=== PATIENT | female | born 1990 | race Caucasian/White ===

== ENCOUNTER 2017-09-25 17:32 | Emergency (ER) | payer OTHER ==
[2017-09-25 17:53] VITALS: BP 102/54
[2017-09-25] MEDS ORDERED: Ondansetron ODT TAB* 4 MG PO ONE (18:51)
--- NOTE | 2017-09-25 19:01 | UC ---
Abdominal Pain Female HPI - HPI Summary HPI Summary: c/o nausea and vomiting since this am, tolerating water but not any food. Denies fever, abdominal pain, diarrhea or constipation. States BM are as usual. Two days ago she finished doxicycline and cephalexin for cellulitis of leg and she has been nauseous during her entire treatment but today it is the first time that she vomits. Denies any changes in medications, denies taking any other OCD, recreational drug. LMD was 2 weeks ago, uses implanon. - History of Current Complaint Stated Complaint: VOMITING Time Seen by Provider: 09/25/17 18:27 Hx Obtained From: Patient Hx Last Menstrual Period: 09/11/17 ?: No Onset/Duration: Sudden Onset Severity Initially: Mild Severity Currently: Mild Character: Not Applicable Aggravating Factor(s): Food Associated Signs and Symptoms: Positive: Negative Allergies/Adverse Reactions: Allergies Allergy/AdvReac Type Severity Reaction Status Date / Time No Known Allergies Allergy Verified 02/01/14 18:59 Home Medications: Home Medications Buprenorphine/Naloxone SL TAB* [Suboxone 8-2 mg SL TAB*] 1 tab SL 09/25/17 [ History] PMH/Surg Hx/FS Hx/Imm Hx - Additional Past Medical History Additional PMH: s/p gastric bypass surgery, history of IVDA on Suboxone, GERD, depression Previously Healthy: Yes Psychological History: Depression - Surgical History Surgical History: Yes Surgery Procedure, Year, and Place: gastric bypass 2008 on [place] - Social History Alcohol Use: None Substance Use Type: None Substance Use Comment - Amount & Last Used: stopped herion and is now using suboxone Smoking Status (MU): Light Every Day Tobacco Smoker Type: Cigarettes Have You Smoked in the Last Year: Yes Household Exposure Type: Cigarettes - Immunization History Most Recent Influenza Vaccination: n/a Most Recent Tetanus Shot: n/a Most Recent Pneumonia Vaccination: n/a Review of Systems Constitutional: Negative Gastrointestinal: Vomiting All Other Systems Reviewed And Are Negative: Yes Physical Exam Triage Information Reviewed: Yes Appearance: Well-Appearing Vital Signs: Initial Vital Signs Temp 98.2 F 09/25/17 17:48 Pulse 71 09/25/17 17:48 Resp 18 09/25/17 17:48 BP 102/54 09/25/17 17:48 Pulse Ox 99 09/25/17 17:48 Vital Signs Reviewed: Yes Eyes: Positive: Conjunctiva Clear Neck exam: Normal Respiratory Exam: Normal Cardiovascular Exam: Normal Abdominal Exam: Normal Abd Pain Female Course/Dx - Course Course Of Treatment: take zofran as needed, probiotics, small volumes of liquids and semisolids, avoid caffeine and dairy unless it is yogurt - Differential Dx/Diagnosis Provider Diagnoses: Gastritis secondary to antibiotic treatment Discharge - Discharge Plan Condition: Stable Disposition: HOME Patient Education Materials: Gastritis (ED) Referrals: Wisam Patterson MD [Primary Care Provider] -
== END 2017-09-25 19:09 | disposition home or self-care (01) ==
LOC: UCEAST 17:32
DX: K29.70 Gastritis, unspecified, without bleeding (principal); T36.4X5A Adverse effect of tetracyclines, initial encounter; T36.1X5A Adverse effect of cephalosporins and other beta-lactam antibiotics, initial encounter; F17.210 Nicotine dependence, cigarettes, uncomplicated; Y92.9 Unspecified place or not applicable
CPT/HCPCS: 99212; A9270-GY; G0463

== ENCOUNTER 2018-02-09 23:12 | Inpatient (IN) | payer MEDICAID, OTHER ==
[2018-02-10 00:22] LABS: ABS Basophils 0 10^3/ul (0-0.2); ABS Eosinophils 0.2 10^3/ul (0-0.6); ABS Monocytes 0.6 10^3/ul (0-0.8); ABS Neutrophils 3.9 10^3/ul (1.5-7.7); ABS Nucleated RBC 0 10^3/ul; Eosinophil % 2.8 % (0-6); Hematocrit 32 % (35-47); Hemoglobin 10.2 g/dl (12.0-16.0); Lymphocyte % 29.8 % (25-47); Mean Corpuscular HGB Conc 32 g/dl (31-36); Mean Corpuscular Hemoglobin 24 pg (27-31); Mean Corpuscular Volume 73 fL (80-97); Mean Platelet Volume 7.8 um3 (7.4-10.4); Nucleated Red Blood Cells % 0; Platelet Count 329 10^3/ul (150-450); Red Blood Count 4.35 10^6/ul (4.0-5.4); Red Cell Distribution Width 19 % (10.5-15); White Blood Count 6.8 10^3/ul (3.5-10.8)
[2018-02-10 00:29] LABS: EGFR Non-African American 98.7 (>60)
[2018-02-10 00:32] LABS: Urine Appearance Cloudy; Urine Blood Negative (Negative); Urine Color Yellow; Urine Ketones Trace (Negative); Urine Protein 2+(100 mg/dL) (Negative); Urine Specific Gravity 1.033 (1.010-1.030); Urine Urobilinogen Negative (Negative)
[2018-02-10] MEDS ORDERED: Mouth Piece, Nicotine* 1 EACH CARTRIDGE INH PRN (01:13)
[2018-02-10] MEDS ORDERED: Nicotine Inhaler* 10 MG AMP INH ONE (01:13)
[2018-02-10] MEDS ORDERED: Mouth Piece, Nicotine* 1 EACH CARTRIDGE ONE (01:20)
--- NOTE | 2018-02-10 01:28 | ED ---
Esa Jeronimo Rebecca, scribed for Nash Davies MD on 02/09/18 at 2355 . Psychiatric Complaint - HPI Summary HPI Summary: Pt is a 27 y/o F who presents to ED c/o depression with SIs. Sx have been present for about a month, gradually worsening. Sx aggravated and alleviated by nothing. PMHx depression - is on Zoloft 200 which was increased from 150 1 week ago. - History Of Current Complaint Chief Complaint: EDMentalHealth Time Seen by Provider: 02/09/18 23:34 Hx Obtained From: Patient Hx Last Menstrual Period: 09/11/17 Onset/Duration: Lasting Weeks - 1 month, Still Present Character: Depressed Aggravating Factor(s): Nothing Alleviating Factor(s): Nothing Associated Signs And Symptoms: Positive: Negative Related History: Positive For: Prior Psychiatric Issues - Depression Has Suicidal: Reports: Thoughts - Allergies/Home Medications Allergies/Adverse Reactions: Allergies Allergy/AdvReac Type Severity Reaction Status Date / Time No Known Allergies Allergy Verified 02/09/18 23:17 PMH/Surg Hx/FS Hx/Imm Hx Endocrine/Hematology History: Denies: Hx Diabetes Cardiovascular History: Denies: Hx Hypertension, Hx Pacemaker/ICD Respiratory History: Denies: Hx Asthma GI History: Reports: Hx Gastroesophageal Reflux Disease History: Denies: Hx Dialysis, Hx Renal Disease Sensory History: Reports: Hx Contacts or Glasses Denies: Hx Hearing Aid Opthamlomology History: Reports: Hx Contacts or Glasses Neurological History: Reports: Other Neuro Impairments/Disorders - l sided neuopathy Psychiatric History: Reports: Hx Anxiety, Hx Eating Disorder, Hx Depression, Hx Inpatient Treatment, Hx Community Mental Health Tx Denies: Hx Panic Disorder, Hx of Violent Episodes Against Others - Surgical History Surgery Procedure, Year, and Place: gastric bypass 2008 on [place] - Immunization History Date of Tetanus Vaccine: Unk Date of Influenza Vaccine: None Infectious Disease History: No Infectious Disease History: Denies: Traveled Outside the [place] in Last 30 Days - Family History Known Family History: Positive: Other - Bipolar, depression - Social History Alcohol Use: None Substance Use Type: Reports: None Substance Use Comment - Amount & Last Used: stopped herion and is now using suboxone Smoking Status (MU): Light Every Day Tobacco Smoker Type: Cigarettes Have You Smoked in the Last Year: Yes Review of Systems Negative: Fever Positive: Depressed, Other - SIs All Other Systems Reviewed And Are Negative: Yes Physical Exam - Summary Physical Exam Summary: VITAL SIGNS: Reviewed. GENERAL: ~Patient is a well-developed and nourished female who is lying comfortable in the stretcher. Patient is not in any acute respiratory distress. HEAD AND FACE: No signs of trauma. No ecchymosis, hematomas or skull depressions. No sinus tenderness. EYES: PERRLA, EOMI x 2, No injected conjunctiva, no nystagmus. EARS: Hearing grossly intact. Ear canals and tympanic membranes are within normal limits. MOUTH: Oropharynx within normal limits. NECK: Supple, trachea is midline, no adenopathy, no JVD, no carotid bruit, no c- spine tenderness, neck with full ROM. CHEST: Symmetric, no tenderness at palpation LUNGS: Clear to auscultation bilaterally. No wheezing or crackles. CVS: Regular rate and rhythm, S1 and S2 present, no murmurs or gallops appreciated. ABDOMEN: Soft, non-tender. No signs of distention. No rebound no guarding, and no masses palpated. Bowel sounds are normal. EXTREMITIES: FROM in all major joints, no edema, no cyanosis or clubbing. NEURO: Alert and oriented x 3. No acute neurological deficits. Speech is normal and follows commands. SKIN: Dry and warm Triage Information Reviewed: Yes Vital Signs On Initial Exam: Initial Vitals Temp Pulse Resp BP Pulse Ox 97.7 F 75 18 107/63 98 02/09/18 23:14 02/09/18 23:14 02/09/18 23:14 02/09/18 23:14 02/09/18 23:14 Vital Signs Reviewed: Yes Diagnostics - Vital Signs Vital Signs Temp Pulse Resp BP Pulse Ox 02/09/18 23:14 97.7 F 75 18 107/63 98 - Laboratory Result Diagrams: 02/10/18 00:01 02/10/18 00:01 Lab Statement: Any lab studies that have been ordered have been reviewed, and results considered in the medical decision making process. Course/Dx - Course Assessment/Plan: Pt is a 27 y/o F who presents to ED c/o depression with SIs for about a month, gradually worsening. PMHx depression - is on Zoloft 200 which was increased from 150 1 week ago. Upon completion of MHE and consultation of [facility] it has been determined that the pt will be admitted as a voluntary admission. Pt will be admitted with Dx of depression. - Differential Dx/Clinical Impression Provider Diagnosis: Depression Discharge - Sign-Out/Discharge Documenting (check all that apply): Discharge/Admit/Transfer - Admit - Discharge Plan Condition: Stable [place] [place]errals: Wisam Patterson MD [Primary Care Provider] - The documentation as recorded by the Esa valenzuela Rebecca accurately reflects the service I personally performed and the decisions made by Keke alan Abdul, MD.
[2018-02-10] MEDS ORDERED: Mouth Piece, Nicotine* 1 EACH CARTRIDGE INH ONE ×2 (02:00→05:00)
[2018-02-10] MEDS ORDERED: Acetaminophen TAB* 325 MG PO PRN (04:30)
[2018-02-10] MEDS ORDERED: Al Hydrox/Mg Hydrox/Simet LIQ* 30 ML UDC PO PRN (04:30)
[2018-02-10] MEDS: Vitamin THERAPEUTIC TAB PO SCH (09:49)
[2018-02-10] MEDS: Sertraline* 50 MG TAB PO SCH (09:49)
[2018-02-10] MEDS: Nicotine GUM* 2 MG PO PRN (09:49)
[2018-02-10] MEDS: ARIPiprazole TAB* 5 MG PO SCH (11:58)
[2018-02-10] MEDS: Nicotine Inhaler* 10 MG AMP INH PRN ×2 (11:58→18:30)
[2018-02-10] MEDS: Buprenorphine/Naloxone 8-2 MG SL TAB* 1 TAB PO SCH ×2 (16:26→20:57)
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
[2018-02-11 06:56] LABS: ABS Basophils 0 10^3/ul (0-0.2); ABS Eosinophils 0.2 10^3/ul (0-0.6); ABS Lymphocytes 2.3 10^3/ul (1.0-4.8); ABS Monocytes 0.5 10^3/ul (0-0.8); ABS Neutrophils 1.9 10^3/ul (1.5-7.7); ABS Nucleated RBC 0 10^3/ul; Eosinophil % 3.3 % (0-6); Hematocrit 29 % (35-47); Hemoglobin 9.3 g/dl (12.0-16.0); Lymphocyte % 47.1 % (25-47); Mean Corpuscular HGB Conc 33 g/dl (31-36); Mean Corpuscular Hemoglobin 24 pg (27-31); Mean Corpuscular Volume 72 fL (80-97); Mean Platelet Volume 7.5 um3 (7.4-10.4); Nucleated Red Blood Cells % 0.1; Platelet Count 249 10^3/ul (150-450); Red Blood Count 3.96 10^6/ul (4.0-5.4); Red Cell Distribution Width 18 % (10.5-15); White Blood Count 4.8 10^3/ul (3.5-10.8)
[2018-02-11 07:07] LABS: EGFR Non-African American 102.1 (>60)
[2018-02-11] MEDS: Nicotine GUM* 2 MG PO PRN ×3 (08:13→20:45)
[2018-02-11] MEDS: ARIPiprazole TAB* 5 MG PO SCH (08:14)
[2018-02-11] MEDS: Nicotine Inhaler* 10 MG AMP INH PRN ×3 (08:14→20:45)
[2018-02-11] MEDS: Buprenorphine/Naloxone 8-2 MG SL TAB* 1 TAB PO SCH ×2 (08:15→20:46)
[2018-02-11] MEDS: Sertraline* 50 MG TAB PO SCH (08:17)
[2018-02-11] MEDS: Vitamin THERAPEUTIC TAB PO SCH (08:17)
--- NOTE | 2018-02-11 13:36 | PN ---
Subjective - Subjective Date of Service: 02/11/18 Service Type: 72216 Hosp care 25 min moderate complexity Subjective: Omar feels "listless" today. She states she feels like her head is stuffy and "floating up in the air" due to the side effects of Abilify, perhaps. She is grateful to be in the hospital because she is willing to stay on the medication despite the side effects while in the outpatient world, she might not have been eager to do so. The positive drug screen for opiates has been sent out for confirmation. I spoke briefly with Dr. Ignacio Arias about Omar. He indicated that she has signed consents for [facility] to communicate with long-term rehabs if she continues to "slip up," in her words. Her lab values are a bit skewed and this is likely due in part to her s/p bariatric surgery 10 years ago. We will initiate iron sulfate therapy once daily and add colace, as well, to try to avoid the constipation usually associated with iron therapy. Objective - Appearance Appearance: Healthy Appearing Dysmorphic Features: No Hygiene: Normal Grooming: Fairly Well Kept - Behavior Psychomotor Activities: Normal Exhibits Abnormal Movement: No - Attitude and Relatedness Attitude and Relatedness: Well Related Eye Contact: Good - Speech Quality: Unpressured Latencies: Short Quantity: Appropriate - Mood Patient's Decription of Mood: "Weird and floaty" - Affect Observed Affect: Depressed Affect Consistent with: Dysphoria - Thought Process Patient's Thought Process: Coherent Thought Content: No Passive Wish, No Suicidal Planning, No Homicidal Ideation, No Paranoid Ideation - Sensorium Experiencing Hallucinations: No, Sensorium is Clear Type of Hallucinations: Visual: No, Auditory: No, Command: No - Level of Consciousness Level of Consciousness: Lethargic Orientation: Yes Intact, Yes Orientated to Time, Yes Orientated to Place, Yes Orientated to Person - Impulse Control Impulse Control: Impaired - Insight and Judgement Insight and Judgement: Impaired - Group Participation Particating in Group Activities: Yes - Medication Management Medication Management Adherence: Yes - Additional Observations Comments: While Omar is doing well on the unit, she does have a tendency to minimize her impulsivity. She is able to occupy her time, but also reports being bored and feeling "weird" and "listless". She is certain she would not be compliant with medications outside of the hospital and as she has not improved since admission, she would not benefit from discharge. Assessment - Assessment Merits Inpatient Hospitalization: For Immediate Safety Inpatient DSM-V Dx: F33.1 Clinical Impression: Omar is a 27-year-old white female who suffers with repeated episodes of depression that tend to remit after months' duration. At this point, she has been depressed for 1.5 months and does not see an end to her difficulties. In that setting, she has suicidal ideation. She is also a rehabilitated heroin addict who "slips up" now and then. She is proud of her progress, nevertheless, although her youth liaison officer and [facility] staff apparently disagree. Plan - Plan Treatment Plan: Name: OMAR BIRD Birthdate: 1990 [id number] Continued Medication Management: Different Medication Medications: Current Medications Acetaminophen (Tylenol Tab*) 650 mg PO Q4H PRN PRN Reason: PAIN or TEMP > 101 F Al Hydrox/Mg Hydrox/Simethicone (Maalox Plus*) 30 ml PO Q4H PRN PRN Reason: INDIGESTION Aripiprazole (Abilify Tab*) 5 mg PO DAILY [facility] Last Admin: 02/11/18 08:14 Dose: 5 mg Buprenorphine/Naloxone (Suboxone 8-2 Mg Sl Tab*) 0.5 tab.sl PO BID [facility] Last Admin: 02/11/18 08:15 Dose: 0.5 tab.sl Ferrous Sulfate (Ferrous Sulfate Tab*) 325 mg PO DAILY [facility] Multivitamins (Theragran Tab*) 1 tab PO DAILY [facility] Last Admin: 02/11/18 08:17 Dose: 1 tab Nicotine (Nicotine Inhaler*) 10 mg INH Q2H PRN PRN Reason: CRAVING Last Admin: 02/11/18 08:14 Dose: 10 mg Nicotine Polacrilex (Nicotine Gum*) 2 mg PO Q2H PRN PRN Reason: CRAVING Last Admin: 02/11/18 08:13 Dose: 2 mg Sertraline HCl (Zoloft*) 150 mg PO DAILY [facility] Last Admin: 02/11/18 08:17 Dose: 150 mg - Discharge Plan Discharge Plan: Outpatient Follow Up Additional Comments: Omar will start Abilify 5 mg and continue Zoloft 200 mg. Her hct and hgb were low. She states she is chronically anemic following bariatric surgery and that her doctors recommended iron fumarate. As the hospital does not carry that formulation of iron and she can't afford it outpatient, we will use iron sulfate Qday. This may target the listlessness she states she has.
[2018-02-11] MEDS: Ferrous Sulfate TAB* 325 MG PO SCH (13:57)
[2018-02-11] MEDS: Docusate CAP* 100 MG PO SCH (14:59)
--- NOTE | 2018-02-11 16:22 | PN ---
[facility]: Group Therapy Note - Service Type Service Type: [id number] Group Psychotherapy - Medication Education Group: Patient was attentive and participatory in group, and remained in good behavioral control. Patient expressed positive insights regarding relevant treatment interventions. Patient stated understanding of material discussed and had appropriate questions.
[2018-02-12] MEDS: Sertraline* 50 MG TAB PO SCH (08:48)
[2018-02-12] MEDS: Ferrous Sulfate TAB* 325 MG PO SCH (08:48)
[2018-02-12] MEDS: Docusate CAP* 100 MG PO SCH (08:49)
[2018-02-12] MEDS: Vitamin THERAPEUTIC TAB PO SCH (08:49)
[2018-02-12] MEDS: ARIPiprazole TAB* 5 MG PO SCH (08:49)
[2018-02-12] MEDS: Buprenorphine/Naloxone 8-2 MG SL TAB* 1 TAB PO SCH ×2 (08:50→20:48)
[2018-02-12] MEDS: Nicotine GUM* 2 MG PO PRN ×3 (08:51→20:50)
[2018-02-12] MEDS: Nicotine Inhaler* 10 MG AMP INH PRN ×4 (08:51→20:49)
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
[2018-02-13] MEDS: Sertraline* 50 MG TAB PO SCH (09:07)
[2018-02-13] MEDS: ARIPiprazole TAB* 5 MG PO SCH (09:07)
[2018-02-13] MEDS: Buprenorphine/Naloxone 8-2 MG SL TAB* 1 TAB PO SCH ×2 (09:08→21:47)
[2018-02-13] MEDS: Vitamin THERAPEUTIC TAB PO SCH (09:08)
[2018-02-13] MEDS: Docusate CAP* 100 MG PO SCH (09:08)
[2018-02-13] MEDS: Ferrous Sulfate TAB* 325 MG PO SCH (09:08)
[2018-02-13] MEDS: Nicotine Inhaler* 10 MG AMP INH PRN ×3 (09:09→19:07)
[2018-02-13] MEDS: Nicotine GUM* 2 MG PO PRN ×3 (09:09→19:07)
--- NOTE | 2018-02-13 16:14 | PN ---
Subjective - Subjective Date of Service: 02/13/18 Service Type: 11566 Hosp care 15 min low complexity Subjective: Omar reports that she is feeling better and at one point confessed that she used IV heroin prior to admission and was feeling guilty. Prior to that she was depressed and that is why she relapsed. Says she is considering inpatient rehab to learn better coping strategies to deal with cravings. No more suicidal. Objective - Appearance Appearance: Healthy Appearing Dysmorphic Features: No Hygiene: Normal - Behavior Psychomotor Activities: Normal Exhibits Abnormal Movement: No - Attitude and Relatedness Attitude and Relatedness: Appropriate Eye Contact: Good - Speech Quality: Unpressured Latencies: Normal Quantity: Appropriate - Mood Patient's Decription of Mood: "Sad" - Affect Observed Affect: Depressed Affect Consistent with: Dysphoria - Thought Process Patient's Thought Process: Coherent, Goal Directed Thought Content: No Passive Wish, No Suicidal Planning, No Homicidal Ideation, No Paranoid Ideation - Sensorium Experiencing Hallucinations: No, Sensorium is Clear Type of Hallucinations: Visual: No, Auditory: No, Command: No - Level of Consciousness Orientation: Yes Intact, Yes Orientated to Time, Yes Orientated to Place, Yes Orientated to Person - Impulse Control Impulse Control: Tenuous - Insight and Judgement Insight and Judgement: Poor - Group Participation Particating in Group Activities: Yes - Medication Management Medication Management Adherence: Yes Assessment - Assessment Merits Inpatient Hospitalization: For Immediate Safety, For Stabilization, Pending Safe DC Plan Inpatient DSM-V Dx: F33.1 Plan - Plan Treatment Plan: Name: OMAR BIRD Birthdate: 1990 [id number] Continued Medication Management: Continue Outpt Medication Medications: Current Medications Acetaminophen (Tylenol Tab*) 650 mg PO Q4H PRN PRN Reason: PAIN or TEMP > 101 F Al Hydrox/Mg Hydrox/Simethicone (Maalox Plus*) 30 ml PO Q4H PRN PRN Reason: INDIGESTION Aripiprazole (Abilify Tab*) 5 mg PO DAILY [facility] Last Admin: 02/13/18 09:07 Dose: 5 mg Buprenorphine/Naloxone (Suboxone 8-2 Mg Sl Tab*) 0.5 tab.sl PO BID [facility] Last Admin: 02/13/18 09:08 Dose: 0.5 tab.sl Docusate Sodium (Colace Cap*) 100 mg PO DAILY [facility] Last Admin: 02/13/18 09:08 Dose: 100 mg Ferrous Sulfate (Ferrous Sulfate Tab*) 325 mg PO DAILY [facility] Last Admin: 02/13/18 09:08 Dose: 325 mg Multivitamins (Theragran Tab*) 1 tab PO DAILY [facility] Last Admin: 02/13/18 09:08 Dose: 1 tab Nicotine (Nicotine Inhaler*) 10 mg INH Q2H PRN PRN Reason: CRAVING Last Admin: 02/13/18 14:32 Dose: 10 mg Nicotine Polacrilex (Nicotine Gum*) 2 mg PO Q2H PRN PRN Reason: CRAVING Last Admin: 02/13/18 14:32 Dose: 2 mg Sertraline HCl (Zoloft*) 150 mg PO DAILY [facility] Last Admin: 02/13/18 09:07 Dose: 150 mg - Discharge Plan Discharge Plan: Drug/Alcohol Rehab
[2018-02-14] MEDS: Docusate CAP* 100 MG PO SCH (08:44)
[2018-02-14] MEDS: ARIPiprazole TAB* 5 MG PO SCH (08:44)
[2018-02-14] MEDS: Vitamin THERAPEUTIC TAB PO SCH (08:44)
[2018-02-14] MEDS: Sertraline* 50 MG TAB PO SCH (08:45)
[2018-02-14] MEDS: Ferrous Sulfate TAB* 325 MG PO SCH (08:45)
[2018-02-14] MEDS: Buprenorphine/Naloxone 8-2 MG SL TAB* 1 TAB PO SCH ×2 (08:46→21:17)
[2018-02-14] MEDS: Nicotine GUM* 2 MG PO PRN ×2 (08:47→16:00)
[2018-02-14] MEDS: Nicotine Inhaler* 10 MG AMP INH PRN ×3 (08:47→21:18)
[2018-02-15 08:15] VITALS: BP 95/54
[2018-02-15] MEDS: Sertraline* 50 MG TAB PO SCH (08:44)
[2018-02-15] MEDS: Docusate CAP* 100 MG PO SCH (08:44)
[2018-02-15] MEDS: Vitamin THERAPEUTIC TAB PO SCH (08:45)
[2018-02-15] MEDS: Ferrous Sulfate TAB* 325 MG PO SCH (08:45)
[2018-02-15] MEDS: Nicotine GUM* 2 MG PO PRN (08:46)
[2018-02-15] MEDS: Nicotine Inhaler* 10 MG AMP INH PRN (08:46)
[2018-02-15] MEDS: ARIPiprazole TAB* 5 MG PO SCH (08:46)
[2018-02-15] MEDS: Buprenorphine/Naloxone 8-2 MG SL TAB* 1 TAB PO SCH (08:47)
--- NOTE | 2018-02-15 11:20 | PN ---
MHU: Group Therapy Note - Service Type Service Type: 82918 Group Psychotherapy - Cognitive Behavioral Group Therapy ( CBT):Patient was attentive and participatory in CBT programming this morning, and remained in good behavioral control. Patient expressed positive insights regarding relevant treatment interventions and goals.
--- NOTE | 2018-02-16 08:32 | DS ---
CC: Dr. Patterson * DISCHARGE SUMMARY: DATE OF ADMISSION: 02/10/18 DATE OF DISCHARGE: 02/15/18 PROVIDER: Christine Valdovinos NP, in Psychiatry. SUPERVISING PHYSICIAN: Dr. Tavon Cameron.* (DICTATED BY CHRISTINE VALDOVINOS NP ) DIAGNOSES: [place] I: Depressive disorder, not otherwise specified; opiate misuse and opiate abuse. CONDITION AT THE TIME OF DISCHARGE: Improved. Psychiatrically cleared, stable. Participated in group, social with peers. She has done well here psychiatrically and tolerated new meds well. She will attend [facility]. MENTAL STATUS EXAM: At the time of discharge, the patient is calm, cooperative , makes good eye contact. She is alert and oriented x3. Her grooming is very good. Her speech pace is normal. Thought processes are logical. She is not psychotic, not delusional. Denies AH, VH, SI, and HI. Insight is fair, her judgment is fair. Her impulse control is fair to good. Willing to follow up. She is urged to see her therapist and the [facility]. DISCHARGE INSTRUCTIONS TO THE PATIENT: A. Medications: 1. Aripiprazole 5 mg daily. 2. Suboxone 8-2 mg one-half tab b.i.d. 3. Colace 100 mg p.o. daily. 4. Ferrous sulfate 325 mg p.o. daily. 5. Nicotine gum 2 mg p.o. q.2 hours. 6. Zoloft 150 mg p.o. daily. B. Diet: Regular. C. Activities: As tolerated. Daria is a smoker. She has agreed to take nicotine gum in an attempt to stop smoking. There are no studies pending at this time. D. Followup care: She has an [facility] meeting in 4 to 7 days, a [facility] meeting in 4 to 7 days, and a followup appointment as needed with Wisam Patterson MD. E. Substance abuse followup: She has been referred to the [facility] where her Suboxone may be continued. She sees Dr. Ignacio Arias and Lakshmi there. HOSPITAL COURSE: Part A: Chief complaint: "Depression, sometimes passive, I have honest emotional instability." The patient is a 27-year-old, partnered female, who is white, with a history of depression and heroin addiction, who arrives brought in by herself and comes in on a 9.39 status after she found that an increase in medication was not helpful and she continued to be depressed. Daria is a person who has been here 2 times before, both times then she was on heroin and she was detoxing and then went to rehab. This time, there is no trigger, she just feels motivated to sleep, she is tired all the time and has no motivation for anything else. She does not do her makeup or hair, ADLs are tedious. She states these are warning signs. She does not go to AA or NA meetings. She isolates and she is irritable. She states that she has started this happening 1 to 1-1/2 months ago. She states nothing has changed. Interestingly, she left her job due to a misunderstanding 3 weeks ago and now she has nothing to do and therefore all the symptoms are much worse. She is stressed out by not having any money due to having no job for 3 weeks. Apparently, she thought she was getting a job at [employer], but they never offered it to her and she quit her old job before she found out about the new job not being a reality. She is sleeping too much. Interest is zero. Her energy is low. She cannot concentrate and she has suicidal ideation. Part B: Psychiatric treatment was rendered. The patient was admitted to the adult behavioral unit and placed on 15-minute checks. The patient did well on the unit and went to groups. She interacted with peers well. We started iron. She would have done better on iron fumarate, but that is not available. Therefore, we started her on iron sulfate 325 and Colace to manage the constipation. She managed those well. She also started Abilify 5 mg, which she tolerated well eventually; she had some side effects at first. No consults were entered. She felt like the stable environment was helpful for the first 5 days, but then, Thursday, she began feeling more like her old self and she felt like the Abilify could actually be starting to work for her. She states she is much improved. She is sleeping less, has a little bit more energy, she is not thinking about suicide. CHRISTINE VALDOVINOS, MEDICINE TEACHER [id number]/[facility] #: [id number] [place]
== END 2018-02-15 12:25 | disposition home or self-care (01) | DRG 751 ==
LOC: ED 23:12 → BSU 02-10 02:40
PROVIDERS: ADMIT Psychiatry & Neurology Psychiatry; ATTEND Psychiatry & Neurology Psychiatry
DX: F33.1 Major depressive disorder, recurrent, moderate (principal); R45.851 Suicidal ideations; F11.10 Opioid abuse, uncomplicated; Z98.84 Bariatric surgery status
CPT/HCPCS: 36415; 80053; 80061; 80307; 80320; 80329; 80361; 80365; 81003; 81015; 83036; 84443; 84702; 85025; 87086; 90853; 99222; 99231; 99232; 99238; 99285; A9270-GY; G0480

== ENCOUNTER 2018-03-29 10:30 | Inpatient (IN) | payer MEDICAID ==
--- NOTE | 2018-03-29 10:58 | ED ---
Psychiatric Complaint - HPI Summary HPI Summary: This is nicolas Lux documenting for attending Wisam Lakhani MD. This patient is a 27 year old F presenting to ED with a chief complaint of SI thoughts with a plan. Her plan is to take all her medications at once. She reports she is not feeling myself again The patient was here 5 weeks ago, admitted to [facility]. She says she does not feel safe. The patient rates the pain 0/ 10 in severity. Symptoms aggravated by nothing. Symptoms alleviated by nothing. Patient reports prior attempts, decreased appetite, and she has not been sleeping well (4-5 hours a night). Patient denies weight loss. Patient lives alone. She does not currently have a psychiatrist currently. PMHx of depression , anxiety, and borderline personality. - History Of Current Complaint Chief Complaint: EDMentalHealth Time Seen by Provider: 03/29/18 10:42 Hx Obtained From: Patient Hx Last Menstrual Period: 09/11/17 Onset/Duration: Sudden Onset, Lasting Weeks - since 03/15/18 Timing: Weeks - since 03/15/18 Severity Currently: None - 0/10 Aggravating Factor(s): Nothing Alleviating Factor(s): Nothing Related History: Positive For: Prior Psychiatric Issues Has Suicidal: Reports: Thoughts, With A Plan, Has Prior Attempt(s) - Allergies/Home Medications Allergies/Adverse Reactions: Allergies Allergy/AdvReac Type Severity Reaction Status Date / Time No Known Allergies Allergy Verified 02/09/18 23:17 Home Medications: Home Medications ARIPiprazole TAB* [Abilify TAB*] 10 mg PO DAILY 03/29/18 [History Confirmed ] Amitriptyline TAB* [Elavil TAB*] 25 mg PO DAILY 03/29/18 [History Confirmed ] Buprenorphine/Naloxone SL TAB* [Suboxone 8-2 mg SL TAB*] 1 tab SL BID 03/29/18 [ History Confirmed 03/29/18] Ferrous Sulfate TAB* 325 mg PO DAILY 03/29/18 [History Confirmed 03/29/18] Sertraline* [Zoloft*] 200 mg PO DAILY 03/29/18 [History Confirmed 03/29/18] PMH/Surg Hx/FS Hx/Imm Hx Endocrine/Hematology History: Reports: Hx Anemia Denies: Hx Diabetes Cardiovascular History: Denies: Hx Hypertension, Hx Pacemaker/ICD Respiratory History: Denies: Hx Asthma GI History: Reports: Hx Gastroesophageal Reflux Disease, Other GI Disorders - Gastrobypass in 2009, HX constipation History: Denies: Hx Dialysis, Hx Renal Disease Sensory History: Reports: Hx Contacts or Glasses Denies: Hx Hearing Aid Opthamlomology History: Reports: Hx Contacts or Glasses Neurological History: Reports: Hx Headaches, Other Neuro Impairments/Disorders - l sided neuopathy Psychiatric History: Reports: Hx Anxiety, Hx Eating Disorder, Hx Depression, Hx Inpatient Treatment, Hx Community Mental Health Tx, Hx Substance Abuse Denies: Hx Panic Disorder, Hx of Violent Episodes Against Others - Surgical History Surgery Procedure, Year, and Place: gastric bypass 2008 on [facility] - Immunization History Date of Tetanus Vaccine: Unk Date of Influenza Vaccine: None Infectious Disease History: No Infectious Disease History: Reports: Hx Hepatitis - Hep C Denies: Traveled Outside the in Last 30 Days - Family History Known Family History: Positive: Other - Bipolar, depression - Social History Alcohol Use: None Substance Use Type: Reports: None Substance Use Comment - Amount & Last Used: stopped herion and is now using suboxone Smoking Status (MU): Heavy Every Day Tobacco Smoker Type: Cigarettes Have You Smoked in the Last Year: Yes Review of Systems Positive: Other - she has not been sleeping well (4-5 hours a night). Patient denies weight loss. Positive: Other - decreased appetite Psychological: Other - SI thoughts with a plan to take all her meds at once; has prior attempts All Other Systems Reviewed And Are Negative: Yes Physical Exam - Summary Physical Exam Summary: VITAL SIGNS: Reviewed. GENERAL: Patient is a well-developed and nourished FEMALE who is lying comfortable in the stretcher. Patient is not in any acute respiratory distress. HEAD AND FACE: No signs of trauma. No ecchymosis, hematomas or skull depressions. No sinus tenderness. EYES: PERRLA, EOMI x 2, No injected conjunctiva, no nystagmus. EARS: Hearing grossly intact. Ear canals and tympanic membranes are within normal limits. MOUTH: Oropharynx within normal limits. NECK: Supple, trachea is midline, no adenopathy, no JVD, no carotid bruit, no c- spine tenderness, neck with full ROM. CHEST: Symmetric, no tenderness at palpation LUNGS: Clear to auscultation bilaterally. No wheezing or crackles. CVS: Regular rate and rhythm, S1 and S2 present, no murmurs or gallops appreciated. ABDOMEN: Soft, non-tender. No signs of distention. No rebound no guarding, and no masses palpated. Bowel sounds are normal. EXTREMITIES: FROM in all major joints, no edema, no cyanosis or clubbing. NEURO: Alert and oriented x 3. No acute neurological deficits. Speech is normal and follows commands. SKIN: Dry and warm Triage Information Reviewed: Yes Vital Signs On Initial Exam: Initial Vitals Temp Pulse Resp BP Pulse Ox 97.9 F 75 17 125/69 100 03/29/18 10:33 03/29/18 10:33 03/29/18 10:33 03/29/18 10:33 03/29/18 10:33 Vital Signs Reviewed: Yes Diagnostics - Vital Signs Vital Signs Temp Pulse Resp BP Pulse Ox 03/29/18 10:33 97.9 F 75 17 125/69 100 - Laboratory Result Diagrams: 03/29/18 11:20 03/29/18 11:20 Lab Statement: Any lab studies that have been ordered have been reviewed, and results considered in the medical decision making process. Course/Dx - Course Assessment/Plan: Patient is medically clear. Blood work without any significant abnormality except for chronic anemia, the urinalysis contaminated therefore we will send for urine cultures. The patient is awaiting for mental health admission. The patient is hemodynamically stable. Dr. Fernando consulted for this patient's and he requests for the patient to be admitted to his services for further workup and management. Diagnosis is substance-induced mood disorder. Patient continues to be hemodynamic stable. - Differential Dx/Clinical Impression Provider Diagnosis: Substance induced mood disorder - Physician Notifications Discussed Care Of Patient With: Jaycob Fernando Time Discussed With Above Provider: 16:50 Instructed by Provider To: Other - Dr. Fernando consulted to patient and asked for the patient to be admitted. Discharge - Sign-Out/Discharge Documenting (check all that apply): Patient Departure - Discharge Plan Condition: Stable Disposition: ADMITTED TO [facility] - Billing Disposition and Condition Condition: STABLE Disposition: Admitted to [facility]
[2018-03-29 11:46] LABS: ABS Basophils 0 10^3/ul (0-0.2); ABS Eosinophils 0.1 10^3/ul (0-0.6); ABS Monocytes 0.3 10^3/ul (0-0.8); ABS Nucleated RBC 0 10^3/ul; Eosinophil % 1.9 % (0-6); Hematocrit 28 % (35-47); Hemoglobin 9.3 g/dl (12.0-16.0); Lymphocyte % 21.6 % (25-47); Mean Corpuscular HGB Conc 33 g/dl (31-36); Mean Corpuscular Hemoglobin 24 pg (27-31); Mean Corpuscular Volume 73 fL (80-97); Mean Platelet Volume 7.7 um3 (7.4-10.4); Nucleated Red Blood Cells % 0.1; Platelet Count 260 10^3/ul (150-450); Red Blood Count 3.85 10^6/ul (4.00-5.40); Red Cell Distribution Width 20 % (10.5-15); White Blood Count 4.5 10^3/ul (3.5-10.8)
[2018-03-29 11:54] LABS: EGFR Non-African American 105.6 (>60)
[2018-03-29 12:00] LABS: Urine Appearance Cloudy; Urine Blood 1+ (Negative); Urine Color Amber; Urine Ketones Negative (Negative); Urine Protein Negative (Negative); Urine Red Blood Cell 3+(>10/hpf) (Absent); Urine Specific Gravity 1.012 (1.010-1.030); Urine Urobilinogen Negative (Negative); Urine White Blood Cell Trace(0-5/hpf) (Absent)
[2018-03-29] MEDS ORDERED: Mouth Piece, Nicotine* 1 EACH CARTRIDGE INH PRN (16:08)
[2018-03-29] MEDS ORDERED: Nicotine Inhaler* 10 MG AMP INH ONE (16:08)
[2018-03-29] MEDS ORDERED: Mouth Piece, Nicotine* 1 EACH CARTRIDGE ONE (16:16)
[2018-03-29] MEDS ORDERED: Al Hydrox/Mg Hydrox/Simet LIQ* 30 ML UDC PO PRN (16:48)
[2018-03-29] MEDS ORDERED: Nicotine GUM* 2 MG PO PRN (16:48)
[2018-03-29] MEDS ORDERED: Acetaminophen TAB* 325 MG PO PRN (16:48)
[2018-03-29] MEDS: Nicotine Inhaler* 10 MG AMP INH PRN (20:09)
[2018-03-29] MEDS: Nicotine Patch Removal NOTE PATCH OFF SCH (20:10)
[2018-03-29] MEDS: Amitriptyline TAB* 25 MG PO SCH (20:59)
[2018-03-29] MEDS ORDERED: Buprenorphine/Naloxone 8-2 MG SL TAB* 1 TAB PO SCH (21:00)
[2018-03-30] MEDS: Nicotine PATCH 21 MG/24 HR* PATCH TRANSDERM SCH (08:24)
[2018-03-30] MEDS: ARIPiprazole TAB* 5 MG PO SCH (08:25)
[2018-03-30] MEDS: Sertraline* 100 MG TAB PO SCH (08:25)
[2018-03-30] MEDS: Vitamin THERAPEUTIC TAB PO SCH (08:25)
[2018-03-30] MEDS: Ferrous Sulfate TAB* 325 MG PO SCH (08:26)
[2018-03-30] MEDS: Nicotine Inhaler* 10 MG AMP INH PRN ×3 (08:28→15:50)
[2018-03-30] MEDS: Buprenorphine/Naloxone 8-2 MG SL TAB* 1 TAB PO SCH (12:23)
--- NOTE | 2018-03-30 13:56 | PN ---
MHU: Group Therapy Note - Service Type Service Type: [id number] Group Psychotherapy - Cognitive Behavioral Group Therapy ( CBT):Patient was attentive and participatory in CBT programming this morning, and remained in good behavioral control. Patient expressed positive insights regarding relevant treatment interventions and goals.
[2018-03-30] MEDS ORDERED: cloNIDine TAB* 0.1 MG PO ONE (15:00)
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
[2018-03-30] MEDS: Nicotine Patch Removal NOTE PATCH OFF SCH (21:25)
[2018-03-30] MEDS: Amitriptyline TAB* 25 MG PO SCH (21:26)
[2018-03-30] MEDS: cloNIDine TAB* 0.1 MG PO SCH (21:26)
[2018-03-31] MEDS: Buprenorphine/Naloxone 8-2 MG SL TAB* 1 TAB PO SCH (09:05)
[2018-03-31] MEDS: Ferrous Sulfate TAB* 325 MG PO SCH (09:09)
[2018-03-31] MEDS: Sertraline* 100 MG TAB PO SCH (09:09)
[2018-03-31] MEDS: ARIPiprazole TAB* 5 MG PO SCH (09:09)
[2018-03-31] MEDS: Vitamin THERAPEUTIC TAB PO SCH (09:09)
[2018-03-31] MEDS: cloNIDine TAB* 0.1 MG PO SCH ×2 (09:10→22:13)
[2018-03-31] MEDS: Nicotine PATCH 21 MG/24 HR* PATCH TRANSDERM SCH (09:11)
[2018-03-31] MEDS: Nicotine Inhaler* 10 MG AMP INH PRN ×3 (09:12→20:15)
--- NOTE | 2018-03-31 11:02 | PN ---
MHU: Group Therapy Note - Service Type Service Type: [id number] Group Psychotherapy - Cognitive Behavioral Group Therapy ( CBT):Patient was attentive and participatory in CBT programming this morning, and remained in good behavioral control. Patient expressed positive insights regarding relevant treatment interventions and goals.
--- NOTE | 2018-03-31 15:58 | PN ---
Subjective - Subjective Date of Service: 03/31/18 Service Type: [id number] Hosp care 15 min low complexity Subjective: Omar reports that she feels safe on the unit, but she is still plotting ways to end her life. At this point she believes overdosing on heroin would be her choice. She has access to means and is also trying to figure out ways to keep herself safe should she be discharged. She is applying to many rehab programs that are consistent with her parole agreement. Objective - Appearance Appearance: Healthy Appearing Dysmorphic Features: No Hygiene: Normal Grooming: Well Kept - Behavior Psychomotor Activities: Normal Exhibits Abnormal Movement: No - Attitude and Relatedness Attitude and Relatedness: Well Related Eye Contact: Good - Speech Quality: Unpressured Latencies: Normal Quantity: Appropriate - Mood Patient's Decription of Mood: "Okay" - Affect Observed Affect: Depressed Affect Consistent with: Dysphoria - Thought Process Patient's Thought Process: Coherent Thought Content: Yes Passive Wish, Yes Suicidal Planning, No Homicidal Ideation, No Paranoid Ideation - Sensorium Experiencing Hallucinations: No, Sensorium is Clear Type of Hallucinations: Visual: No, Auditory: No, Command: No - Level of Consciousness Level of Consciousness: Alert Orientation: Yes Intact, Yes Orientated to Time, Yes Orientated to Place, Yes Orientated to Person - Impulse Control Impulse Control: Tenuous - Insight and Judgement Insight and Judgement: Fair - Group Participation Particating in Group Activities: Yes - Medication Management Medication Management Adherence: Yes - Additional Observations Comments: Clonidine 0.2 mg at bedtime was useful, but 0.2 mg diuring the day was too much. We have reduced it to 0.1 mg during the day. She finds that her anxiety is controlled to a reasonable degree throughout the day although toward later afternoon, it is less helpful. This is in the context of a very active and acute milieu. Assessment - Assessment Merits Inpatient Hospitalization: For Immediate Safety, For Stabilization, Pending Safe DC Plan Clinical Impression: Omar is forward thinking and hopeful. She would like to go to rehab and we are helping her do that. In the meantime, controlling her anxiety and depressioin are important issues to tackle. Plan - Plan Treatment Plan: Name: OMAR BIRD Birthdate: 1990 [id number] Medications: Current Medications Acetaminophen (Tylenol Tab*) 650 mg PO Q4H PRN PRN Reason: for pain; or Temp >101 F Al Hydrox/Mg Hydrox/Simethicone (Maalox Plus*) 30 ml PO Q4H PRN PRN Reason: INDIGESTION Amitriptyline HCl (Elavil Tab*) 25 mg PO BEDTIME [facility] Last Admin: 03/30/18 21:26 Dose: 25 mg Aripiprazole (Abilify Tab*) 10 mg PO DAILY [facility] Last Admin: 03/31/18 09:09 Dose: 10 mg Buprenorphine/Naloxone (Suboxone 8-2 Mg Sl Tab*) 1 tab.sl PO DAILY [facility] Last Admin: 03/31/18 09:05 Dose: 1 tab.sl Clonidine HCl (Catapres Tab*) 0.1 mg PO DAILY [facility] Clonidine HCl (Catapres Tab*) 0.2 mg PO BEDTIME [facility] Device (Nicotine Mouth Piece*) 1 each INH .USE WITH NICOTROL PRN PRN Reason: CRAVING Last Admin: 03/29/18 16:23 Dose: 1 each Ferrous Sulfate (Ferrous Sulfate Tab*) 325 mg PO DAILY [facility] Last Admin: 03/31/18 09:09 Dose: 325 mg Multivitamins (Theragran Tab*) 1 tab PO DAILY [facility] Last Admin: 03/31/18 09:09 Dose: 1 tab Nicotine (Nicotine Inhaler*) 10 mg INH Q2H PRN PRN Reason: CRAVING Last Admin: 03/31/18 14:49 Dose: 10 mg Nicotine (Nicotine Patch 21 Mg/24 Hr*) 1 patch TRANSDERM DAILY@0800 [facility] Last Admin: 03/31/18 09:11 Dose: 1 patch Nicotine Polacrilex (Nicotine Gum*) 2 mg PO Q2H PRN PRN Reason: CRAVING Pharmacy Profile Note (Nicotine Patch Removal Note*) 1 note PATCH OFF 2100 [facility] Last Admin: 03/30/18 21:25 Dose: 1 note Sertraline HCl (Zoloft*) 200 mg PO DAILY [facility] Last Admin: 03/31/18 09:09 Dose: 200 mg - Discharge Plan Discharge Plan: Drug/Alcohol Rehab Additional Comments: Omar's discharge plan currently includes transfer to rehab for drug use. Omar would have the safest discharge plan if she went directly to drug and alcohol rehab, as she is having suicidal planning in the hospital.
[2018-03-31] MEDS: Amitriptyline TAB* 25 MG PO SCH (20:07)
[2018-03-31] MEDS: Nicotine Patch Removal NOTE PATCH OFF SCH (20:07)
[2018-04-01] MEDS: Nicotine PATCH 21 MG/24 HR* PATCH TRANSDERM SCH (08:49)
[2018-04-01] MEDS: Vitamin THERAPEUTIC TAB PO SCH (08:50)
[2018-04-01] MEDS: Sertraline* 100 MG TAB PO SCH (08:51)
[2018-04-01] MEDS: ARIPiprazole TAB* 5 MG PO SCH (08:51)
[2018-04-01] MEDS: Buprenorphine/Naloxone 8-2 MG SL TAB* 1 TAB PO SCH (08:52)
[2018-04-01] MEDS: Ferrous Sulfate TAB* 325 MG PO SCH (08:52)
[2018-04-01] MEDS: Nicotine Inhaler* 10 MG AMP INH PRN ×2 (08:54→13:24)
[2018-04-01] MEDS ORDERED: cloNIDine TAB* 0.1 MG PO SCH (09:00)
--- NOTE | 2018-04-01 16:49 | PN ---
Subjective - Subjective Date of Service: 04/01/18 Service Type: [id number] Hosp care 15 min low complexity Subjective: Omar has been granted admission to [facility] drug and alcohol rehab. She will be leaving in the morning. She is feeling well and happy about this potential transition to sobriety. Objective - Appearance Appearance: Healthy Appearing Dysmorphic Features: No Hygiene: Normal Grooming: Well Kept - Behavior Psychomotor Activities: Normal Exhibits Abnormal Movement: No - Attitude and Relatedness Attitude and Relatedness: Cooperative Eye Contact: Good - Speech Quality: Unpressured Latencies: Normal Quantity: Appropriate - Mood Patient's Decription of Mood: "Anxious" - Affect Observed Affect: Good Affect Consistent with: Euthymia - Thought Process Patient's Thought Process: Coherent Thought Content: Yes Suicidal Planning, No Passive Wish, No Homicidal Ideation, No Paranoid Ideation - Sensorium Experiencing Hallucinations: No, Sensorium is Clear Type of Hallucinations: Visual: No, Auditory: No, Command: No - Level of Consciousness Level of Consciousness: Alert Orientation: Yes Intact, Yes Orientated to Time, Yes Orientated to Place, Yes Orientated to Person - Impulse Control Impulse Control: Impaired - Insight and Judgement Insight and Judgement: Fair - Group Participation Particating in Group Activities: Yes - Medication Management Medication Management Adherence: Yes - Additional Observations Comments: Clonidine 0.2 mg at bedtime was useful, but 0.2 mg diuring the day was too much. We have reduced it to 0.1 mg during the day. She finds that her anxiety is controlled to a reasonable degree throughout the day although toward later afternoon, the medication is less helpful. This is in the context of a very active and acute milieu. Omar appears to be anxious and has a furrowed brow much of the time. Assessment - Assessment Merits Inpatient Hospitalization: For Immediate Safety, For Stabilization, For Discharge Planning Clinical Impression: Omar is forward thinking and hopeful. She would like to go to rehab and we are helping her do that. In the meantime, controlling her anxiety and depression are important issues to tackle. She is hopeful that a trip to rehab will be helpful for her and is in keeping with her outpatient plan of care. Plan - Plan Treatment Plan: Name: OMAR BIRD Birthdate: 1990 [id number] Medications: Current Medications Acetaminophen (Tylenol Tab*) 650 mg PO Q4H PRN PRN Reason: for pain; or Temp >101 F Last Admin: 04/01/18 11:15 Dose: 650 mg Al Hydrox/Mg Hydrox/Simethicone (Maalox Plus*) 30 ml PO Q4H PRN PRN Reason: INDIGESTION Amitriptyline HCl (Elavil Tab*) 25 mg PO BEDTIME [facility] Last Admin: 03/31/18 20:07 Dose: 25 mg Aripiprazole (Abilify Tab*) 10 mg PO DAILY [facility] Last Admin: 04/01/18 08:51 Dose: 10 mg Buprenorphine/Naloxone (Suboxone 8-2 Mg Sl Tab*) 1 tab.sl PO DAILY [facility] Last Admin: 04/01/18 08:52 Dose: 1 tab.sl Clonidine HCl (Catapres Tab*) 0.1 mg PO DAILY [facility] Last Admin: 04/01/18 08:52 Dose: 0.1 mg Clonidine HCl (Catapres Tab*) 0.2 mg PO BEDTIME [facility] Last Admin: 03/31/18 22:13 Dose: Not Given Device (Nicotine Mouth Piece*) 1 each INH .USE WITH NICOTROL PRN PRN Reason: CRAVING Last Admin: 03/29/18 16:23 Dose: 1 each Ferrous Sulfate (Ferrous Sulfate Tab*) 325 mg PO DAILY [facility] Last Admin: 04/01/18 08:52 Dose: 325 mg Multivitamins (Theragran Tab*) 1 tab PO DAILY [facility] Last Admin: 04/01/18 08:50 Dose: 1 tab Nicotine (Nicotine Inhaler*) 10 mg INH Q2H PRN PRN Reason: CRAVING Last Admin: 04/01/18 13:24 Dose: 10 mg Nicotine (Nicotine Patch 21 Mg/24 Hr*) 1 patch TRANSDERM DAILY@0800 [facility] Last Admin: 04/01/18 08:49 Dose: 1 patch Nicotine Polacrilex (Nicotine Gum*) 2 mg PO Q2H PRN PRN Reason: CRAVING Pharmacy Profile Note (Nicotine Patch Removal Note*) 1 note PATCH OFF 2100 [facility] Last Admin: 03/31/18 20:07 Dose: 1 note Sertraline HCl (Zoloft*) 200 mg PO DAILY [facility] Last Admin: 04/01/18 08:51 Dose: 200 mg - Discharge Plan Discharge Plan: Drug/Alcohol Rehab Additional Comments: Omar's discharge plan currently includes transfer to rehab for drug use. Omar would have the safest discharge plan if she went directly to drug and alcohol rehab, as she is having suicidal planning in the hospital. This has occurred as she has secured admission to [facility] drug and alcohol rehab. She will be leaving at 8 am on Thursday morning.
--- NOTE | 2018-04-01 16:59 | PN ---
MHU: Group Therapy Note - Service Type Service Type: [id number] Group Psychotherapy - Group Participation Patient Participating in Group: Yes Level of Group Participation: Attentive, Spontaneously Participate Relatedness to Group: Well Related - Additional Group Comments Group Comments: Daria was attentive and pleasant. She was eager to join the group and made appropriate comments and asked good questions.
[2018-04-01] MEDS: Amitriptyline TAB* 25 MG PO SCH (20:30)
[2018-04-01] MEDS: cloNIDine TAB* 0.1 MG PO SCH (20:31)
[2018-04-01 20:35] VITALS: BP 117/64
[2018-04-01] MEDS: Nicotine Patch Removal NOTE PATCH OFF SCH (20:36)
--- NOTE | 2018-04-03 04:07 | DS ---
DISCHARGE SUMMARY: DATE OF ADMISSION: 03/29/18 DATE OF DISCHARGE: 04/02/18 PROVIDER: Christine Valdovnios NP, in Psychiatry. SUPERVISING PHYSICIAN: Dr. Jaycob Fernando.* (DICTATED BY CHRISTINE VALDOVINOS NP ) DIAGNOSES: [place] I: Substance-induced mood disorder. [place] II: Deferred. CONDITION AT THE TIME OF DISCHARGE: Improved, psychiatrically cleared, stable. Participated in groups, social with peers. She is being discharged to [facility]. She has done well here psychiatrically. No new medications were started. MENTAL STATUS EXAMINATION: At the time of discharge, the patient is calm, cooperative, and makes good eye contact. She is alert and oriented x3. Her grooming is good. Her speech pace is normal. Her thought processes are logical. She is not psychotic. She is not delusional. She denies AH, VH, SI, and HI. Her insight and judgment are fair to good. She is willing to follow up and she is on her way to [facility] program. DISCHARGE INSTRUCTIONS TO THE PATIENT: A. Medications: 1. She will be taking sertraline 200 mg daily. 2. Buprenorphine 8/2 sublingually daily. 3. Clonidine 0.1 in the morning. 4. Clonidine 0.2 at bedtime daily. 5. Aripiprazole 10 mg daily. B. Diet is regular. C. Activities: As tolerated. Daria is a smoker. She is not using the Smokers' Quitline at this time. If she decides to use it, she can call at . There are no studies pending at the time of discharge. D. Followup care: Daria is going to [facility]. E. Substance abuse followup: She was referred to [facility] for substance abuse treatment. She is on Suboxone and they at [facility] will determine what course to take with that. HOSPITAL COURSE: Part A: Chief complaint: "I relapsed on heroin and I'm thinking of harming myself. I don't think I can be safe alone." The patient is a 27-year-old single white female with a history of heroin abuse, who arrives brought in by herself after relapsing on heroin recently. She used last Thursday for the first time in 2 weeks. She avoided going to parole, but they still gave her a chance to go to long-term treatment if she chose to do so. She put paperwork in at the [facility] [place], but there is a 4 to 5 -week wait for long-term rehab. She is currently taking Suboxone 8 mg total per day. She would like that set for the morning instead of the evening. She states she has unbearable anxiety and she has only been offered increased Zoloft as a solution as well as hydroxyzine. She feels like this has been not helpful and as said before, she does find it unbearable. She is experiencing sleep irregularity. Her interest in things is low. She feels guilty about using. She states she cannot concentrate. Her appetite has been reduced and she is having suicidal ideation. Part B: Psychiatric treatment was rendered. The patient was admitted to adult behavioral health unit and placed on 15-minute checks for safety. Daria did well on the unit, went to groups and interacted with peers well. The only med changes we made were to start clonidine 0.1 in the morning and 0.2 at night. She found those to be helpful, although they were not a full solution. Her HA1c is 5.8. Her lipids included triglycerides of 62, cholesterol 154, LDL cholesterol 68, HDL cholesterol 73.9. TSH is 0.56. We did not meet with her family and no consults were entered. She is improved. She is less anxious. She feels more confident in her ability to go about getting better and improving her ability to tolerate stress without the use of illegal substances. At this time, she may not have been stable to go home, but is stable to go to drug and alcohol rehab. CHRISTINE VALDOVINOS, [place] [id number]/[facility] #: [id number] [place]
== END 2018-04-02 08:00 | DRG 773 ==
LOC: ED 10:30 → BSU 17:31
PROVIDERS: ADMIT Psychiatry & Neurology Psychiatry; ATTEND Psychiatry & Neurology Psychiatry
PROC: GZHZZZZ Group Psychotherapy (ICD-10-PCS; principal; 2018-03-30)
DX: F11.14 Opioid abuse with opioid-induced mood disorder (principal); R45.851 Suicidal ideations; F17.210 Nicotine dependence, cigarettes, uncomplicated; F32.9 Major depressive disorder, single episode, unspecified; F41.9 Anxiety disorder, unspecified; F60.3 Borderline personality disorder; K21.9 Gastro-esophageal reflux disease without esophagitis; G62.9 Polyneuropathy, unspecified; Z81.8 Family history of other mental and behavioral disorders; Z86.19 Personal history of other infectious and parasitic diseases; Z91.5 Personal history of self-harm; Z98.84 Bariatric surgery status
CPT/HCPCS: 36415; 80053; 80061; 80307; 80320; 80329; 81003; 81015; 83036; 84443; 85025; 87077; 87086; 87186; 90853; 99222; 99231; 99238; 99284; A9270-GY; G0480

== ENCOUNTER → 2018-06-18 13:14 | Emergency (ER) | payer MEDICAID ==
--- NOTE | 2018-06-18 13:57 | ED ---
Substance Abuse/Use - HPI Summary HPI Summary: This pt is a 27 y/o female presenting to [facility] via EMS for syncopal episode s/p drug use. Pt reports she passed out in the [employer] bathroom after she had injected heroin. She states she had IVDU of 1/4 of a gram of heroin today. Pt notes she woke up by herself. No narcan was used. Pt states the amount of heroin she used today is what she usually uses. She notes using heroin a couple of times per week. Currently pt reports feeling well. Denies any pain, chest pain, SOB, nausea, vomiting. Denies SI thoughts, SI plan, HI thoughts, HI plan. PMHx includes depression, anxiety, gastric bypass surgery in 2008. Pt lost 130 lbs after surgery. LMP: right now. She reports heroin and tobacco use, but denies alcohol use. She currently takes Zoloft, Abilify, Elavil, and 8 mg of suboxone. - History Of Current Complaint Stated Complaint: OVERDOSE Time Seen by Provider: 06/18/18 13:33 Hx Obtained From: Patient Hx Last Menstrual Period: 09/11/17 Onset/Duration of Drug/ETOH Abuse: Minutes Ingestion History: Type/Name Of Drug - Heroin, Amount Ingested - 1/4 of a gram Overdose Characteristics: IV Timing Of Abuse: Intermittent Severity Currently: None Character: Other - pt passed out after IV use of heroin Aggravating Factor(s): Nothing Alleviating Factor(s): Nothing Associated Signs And Symptoms: Intentional Ingestion, Other: - POS: syncope. NEG : pain, chest pain, SOB, nausea, vomiting - Allergies/Home Medications Allergies/Adverse Reactions: Allergies Allergy/AdvReac Type Severity Reaction Status Date / Time No Known Allergies Allergy Verified 06/18/18 13:57 Home Medications: Home Medications Buprenorphin-Naloxon 8-2 mg Sl 0.5 tab PO DAILY 06/18/18 [History Confirmed 08/24] Buprenorphine/Naloxone SL TAB* [Suboxone 8-2 mg SL TAB*] 2 tab.sl PO DAILY 06/18 [History Confirmed 06/18/18] PMH/Surg Hx/FS Hx/Imm Hx Endocrine/Hematology History: Reports: Hx Anemia Denies: Hx Diabetes Cardiovascular History: Denies: Hx Hypertension, Hx Pacemaker/ICD Respiratory History: Denies: Hx Asthma GI History: Reports: Hx Gastroesophageal Reflux Disease, Other GI Disorders - Gastrobypass in 2009, HX constipation History: Denies: Hx Dialysis, Hx Renal Disease Sensory History: Reports: Hx Contacts or Glasses Denies: Hx Hearing Aid Opthamlomology History: Reports: Hx Contacts or Glasses Neurological History: Reports: Hx Headaches, Other Neuro Impairments/Disorders - l sided neuopathy Psychiatric History: Reports: Hx Anxiety, Hx Eating Disorder, Hx Depression, Hx Inpatient Treatment, Hx Community Mental Health Tx, Hx Substance Abuse Denies: Hx Panic Disorder, Hx of Violent Episodes Against Others - Surgical History Surgery Procedure, Year, and Place: gastric bypass 2008 on [place] - Immunization History Date of Tetanus Vaccine: Unk Date of Influenza Vaccine: None Infectious Disease History: Reports: Hx Hepatitis - Hep C Denies: Traveled Outside the [place] in Last 30 Days - Family History Known Family History: Positive: Other - Bipolar, depression - Social History Alcohol Use: None Substance Use Type: Reports: Heroin Substance Use Comment - Amount & Last Used: is using heroin but is also on suboxone Smoking Status (MU): Heavy Every Day Tobacco Smoker Type: Cigarettes Amount Used/How Often: 1 ppd Length of Time of Smoking/Using Tobacco: 13 years Have You Smoked in the Last Year: Yes Review of Systems Negative: Fever, Chills Negative: Chest Pain Negative: Shortness Of Breath Negative: Vomiting, Nausea Positive: Syncope Negative: Other - SI thoughts or plan, HI thoughts or plan All Other Systems Reviewed And Are Negative: Yes Physical Exam - Summary Physical Exam Summary: VITAL SIGNS: Reviewed. GENERAL: Patient is a well-developed and nourished female who is lying comfortable in the stretcher. Patient is not in any acute respiratory distress. HEAD AND FACE: No signs of trauma. No ecchymosis, hematomas or skull depressions. No sinus tenderness. EYES: Pinpoint pupils, EOMI x 2, No nystagmus. EARS: Hearing grossly intact. Ear canals and tympanic membranes are within normal limits. MOUTH: Oropharynx within normal limits. NECK: Supple, trachea is midline, no adenopathy, no JVD, no carotid bruit, no c- spine tenderness, neck with full ROM. CHEST: Symmetric, no tenderness at palpation LUNGS: Clear to auscultation bilaterally. No wheezing or crackles. CVS: Regular rate and rhythm, S1 and S2 present, no murmurs or gallops appreciated. ABDOMEN: Soft, non-tender. No signs of distention. No rebound, no guarding, and no masses palpated. Bowel sounds are normal. EXTREMITIES: FROM in all major joints, no edema, no cyanosis or clubbing. NEURO: Alert and oriented x 3. No acute neurological deficits. Speech is normal and follows commands. SKIN: Dry and warm Triage Information Reviewed: Yes Vital Signs On Initial Exam: Initial Vitals Temp Pulse Resp BP Pulse Ox 98.2 F 88 16 104/64 95 06/18/18 13:49 06/18/18 13:49 06/18/18 13:49 06/18/18 13:49 06/18/18 13:49 Vital Signs Reviewed: Yes Diagnostics - Laboratory Result Diagrams: 06/18/18 13:51 06/18/18 13:51 Lab Statement: Any lab studies that have been ordered have been reviewed, and results considered in the medical decision making process. - EKG 14:05 Cardiac Rate: NL - at 81 bpm EKG Rhythm: Sinus Rhythm EKG Interpretation: No ST elevations. Course/Dx - Course Assessment/Plan: This pt is a 27 y/o female presenting to [facility] via EMS for syncopal episode s/p drug use. Pt reports she passed out in the [employer] bathroom after she had injected heroin. She states she had IVDU of 1/4 of a gram of heroin today. Pt notes she woke up by herself. No narcan was used. Pt states the amount of heroin she used today is what she usually uses. She notes using heroin a couple of times per week. Currently pt reports feeling well. Denies any pain, chest pain, SOB, nausea, vomiting. Denies SI thoughts, SI plan, HI thoughts, HI plan. PMHx includes depression, anxiety, gastric bypass surgery in 2008. Pt lost 130 lbs after surgery. LMP: right now. She reports heroin and tobacco use, but denies alcohol use. She currently takes Zoloft, Abilify, Elavil, and 8 mg of suboxone. Blood work without any significant abnormality except for hemoglobin 9.8, hematocrit 30, sodium 134, glucose 144, beta hCG is negative. In the ED course the patient was running stable. The patient was placed in a secured entrance monitor. Patient is eating and drinking, patient is hemodynamically stable. Patient is with normal cognition. Patient is ambulating without any difficulty. Therefore the patient will be discharged home with follow up from primary care physician. I discussed all the findings and test results with the patient. Patient was instructed to return to the emergency room immediately if any of the symptoms return or worsens. Plan of care was discussed with the patient and understands and agrees. All questions were answered at patient satisfaction. There were no further complaints or concerns. Lung exam before discharge: CTA B/L. Good air exchange. No wheezing or crackles heard. CVS: S1 and S2 present. No murmurs appreciated. Patient is alert and oriented x 3. Patient is hemodynamically stable. Patient will be discharged home with follow up from PCP in the next 2-3 days. - Diagnoses Provider Diagnoses: Heroin abuse Discharge - Sign-Out/Discharge Documenting (check all that apply): Patient Departure - Discharge home - Discharge Plan Condition: Stable Disposition: HOME Patient Education Materials: Narcotic Use Disorder (ED) Referrals: Wisam Patterson MD [Primary Care Provider] - Additional Instructions: FOLLOW UP WITH YOUR PRIMARY CARE PROVIDER IN 2-3 DAYS. RETURN TO THE ED FOR ANY NEW OR WORSENING SYMPTOMS. - Billing Disposition and Condition Condition: STABLE Disposition: Home - Attestation Statements Document Initiated by Marinaibe: Yes Documenting Scribe: Rossana Langford Provider For Whom Braxton is Documenting (Include Credential): Wisam Lakhani MD Scribe Attestation: Rossana Jeronimo scribed for Wisam Lakhani MD on 06/19/18 at 0841. Scribe Documentation Reviewed: Yes Provider Attestation: The documentation as recorded by the Rossana valenzuela accurately reflects the service I personally performed and the decisions made by , Wisam Lakhani MD
[2018-06-18 14:09] LABS: ABS Basophils 0 10^3/ul (0-0.2); ABS Eosinophils 0.1 10^3/ul (0-0.6); ABS Lymphocytes 1.1 10^3/ul (1.0-4.8); ABS Monocytes 0.6 10^3/ul (0-0.8); ABS Neutrophils 4.7 10^3/ul (1.5-7.7); ABS Nucleated RBC 0 10^3/ul; Eosinophil % 1.3 % (0-6); Hematocrit 30 % (35-47); Hemoglobin 9.8 g/dl (12.0-16.0); Lymphocyte % 17.2 % (25-47); Mean Corpuscular HGB Conc 32 g/dl (31-36); Mean Corpuscular Hemoglobin 23 pg (27-31); Mean Corpuscular Volume 72 fL (80-97); Mean Platelet Volume 7.7 um3 (7.4-10.4); Nucleated Red Blood Cells % 0; Platelet Count 280 10^3/ul (150-450); Red Blood Count 4.16 10^6/ul (4.00-5.40); Red Cell Distribution Width 18 % (10.5-15); White Blood Count 6.5 10^3/ul (3.5-10.8)
[2018-06-18 14:21] LABS: EGFR Non-African American 111.3 (>60)
[2018-06-18 16:51] LABS: Urine Appearance Cloudy; Urine Blood 3+ (Negative); Urine Color Yellow; Urine Ketones Negative (Negative); Urine Protein Negative (Negative); Urine Red Blood Cell Trace(0-2/hpf) (Absent); Urine Specific Gravity 1.008 (1.010-1.030); Urine Urobilinogen Negative (Negative); Urine White Blood Cell Trace(0-5/hpf) (Absent)
[2018-06-18 17:25] VITALS: BP 106/68
== END | disposition home or self-care (01) ==
LOC: ED 13:14
DX: F11.10 Opioid abuse, uncomplicated (principal); K21.9 Gastro-esophageal reflux disease without esophagitis; B19.20 Unspecified viral hepatitis C without hepatic coma; F17.210 Nicotine dependence, cigarettes, uncomplicated
CPT/HCPCS: 36415; 80053; 80307; 80320; 80329; 81003; 81015; 82550; 83605; 84443; 85025; 87086; 99284; G0480

== ENCOUNTER 2018-11-01 09:47 | Emergency (ER) | payer MEDICAID, OTHER ==
[2018-11-01] MEDS ORDERED: Ondansetron ODT TAB* 4 MG SL ONE (10:30)
[2018-11-01] MEDS ORDERED: Ketorolac INJ* 60 MG/2 ML VIAL IM ONE (10:30)
--- NOTE | 2018-11-01 10:46 | ED ---
Back Pain - HPI Summary HPI Summary: Patient is a 28-year-old female who presents to the ED with a 5 hour history of right-sided flank pain which is nonradiating. She endorses the pain of a 10/10 , constant and stabbing. She endorses urinary symptoms of urgency, frequency and symptoms of obstruction stating she feels she needs to go but is unable to complete the urine stream. She denies any fevers, sweats, chills. Denies any history of kidney stones. Denies any history of back pain otherwise. History of heavy drug use with heroin overdose just 4 months ago. She is currently on 8 mg Suboxone daily. She states she has been unable to ambulate due to the severity of the pain. Pain does not radiate into the leg. Denies history of bladder or bowel dysfunction. Denies numbness or tingling. - History of Current Complaint Chief Complaint: EDFlankPain Stated Complaint: BACK PAIN Time Seen by Provider: 11/01/18 10:01 Hx Obtained From: Patient Hx Last Menstrual Period: 09/11/17 Onset/Duration: Sudden Onset Onset/Duration: Started Hours Ago Timing: Constant Back Pain Location: Is Discrete @ - right sided flank pain non-radiating Severity Initially: Moderate Severity Currently: Moderate Pain Intensity: 10 Pain Scale Used: 0-10 Numeric Character: Aching Aggravating Symptom(s): Movement, Lifting, Bending, Walking Alleviating Symptom(s): Rest, Position Associated Signs And Symptoms: Negative: Swelling, Redness, Bruising, Bladder Incontinence, Bowel Incontinence, Weight Loss, Pain with Weight Bearing - Risk Factors AAA Risk Factors: Negative TAD Risk Factors: Negative Cauda Equina Risk Factors: Negative Epidural Abscess Risk Factors: Negative - Allergies/Home Medications Allergies/Adverse Reactions: Allergies Allergy/AdvReac Type Severity Reaction Status Date / Time No Known Allergies Allergy Verified 11/01/18 09:58 PMH/Surg Hx/FS Hx/Imm Hx Previously Healthy: Yes Endocrine/Hematology History: Reports: Hx Anemia Denies: Hx Diabetes Cardiovascular History: Denies: Hx Hypertension, Hx Pacemaker/ICD Respiratory History: Denies: Hx Asthma GI History: Reports: Hx Gastroesophageal Reflux Disease, Other GI Disorders - Gastrobypass in 2009, HX constipation History: Denies: Hx Dialysis, Hx Renal Disease Sensory History: Reports: Hx Contacts or Glasses Denies: Hx Hearing Aid Opthamlomology History: Reports: Hx Contacts or Glasses Neurological History: Reports: Hx Headaches, Other Neuro Impairments/Disorders - l sided neuopathy Psychiatric History: Reports: Hx Anxiety, Hx Eating Disorder, Hx Depression, Hx Inpatient Treatment, Hx Community Mental Health Tx, Hx Substance Abuse Denies: Hx Panic Disorder, Hx of Violent Episodes Against Others - Surgical History Surgery Procedure, Year, and Place: gastric bypass 2008 on [place] - Immunization History Date of Tetanus Vaccine: Unk Date of Influenza Vaccine: None Hx Pertussis Vaccination: No Immunizations Up to Date: Yes Infectious Disease History: No Infectious Disease History: Reports: Hx Hepatitis - Hep C Denies: Traveled Outside the [place] in Last 30 Days - Family History Known Family History: Positive: Other - Bipolar, depression - Social History Occupation: Unemployed Lives: With Family Alcohol Use: None Hx Substance Use: No Substance Use Type: Reports: None Substance Use Comment - Amount & Last Used: is using heroin but is also on suboxone Hx Tobacco Use: Yes Smoking Status (MU): Heavy Every Day Tobacco Smoker Type: Cigarettes Amount Used/How Often: 1 ppd Length of Time of Smoking/Using Tobacco: 13 years Have You Smoked in the Last Year: Yes Review of Systems Constitutional: Negative Negative: Fever, Chills, Fatigue, Skin Diaphoresis Negative: Palpitations, Chest Pain Negative: Shortness Of Breath, Cough Negative: Abdominal Pain, Vomiting, Diarrhea, Nausea Positive: dysuria, frequency, flank pain, incontinence, urgency Positive: Other - right sided flank pain Neurological: Negative All Other Systems Reviewed And Are Negative: Yes Physical Exam Triage Information Reviewed: Yes Vital Signs On Initial Exam: Initial Vitals Temp Pulse Resp BP Pulse Ox 99.0 F 75 20 105/62 96 11/01/18 09:52 11/01/18 09:52 11/01/18 09:52 11/01/18 09:52 11/01/18 09:52 Vital Signs Reviewed: Yes Appearance: Positive: Well-Appearing, Well-Nourished Skin: Positive: Warm, Skin Color Reflects Adequate Perfusion Head/Face: Positive: Normal Head/Face Inspection Eyes: Positive: EOMI, MUNIR, Conjunctiva Clear Neck: Positive: Supple, No Lymphadenopathy Respiratory/Lung Sounds: Positive: Clear to Auscultation, Breath Sounds Present Cardiovascular: Positive: RRR, Pulses are Symmetrical in both Upper and Lower Extremities Musculoskeletal: Positive: Pain @ - right sided flank pain, Other Neurological: Positive: Sensory/Motor Intact, Alert, Oriented to Person Place, Time, Facial Symmetry Psychiatric: Positive: Affect/Mood Appropriate AVPU Assessment: Alert Diagnostics - Vital Signs Vital Signs Temp Pulse Resp BP Pulse Ox 11/01/18 10:01 66 95 11/01/18 09:55 67 105/62 95 11/01/18 09:52 99.0 F 75 20 105/62 96 - Laboratory Result Diagrams: 11/01/18 10:43 11/01/18 10:43 Lab Statement: Any lab studies that have been ordered have been reviewed, and results considered in the medical decision making process. Back Pain Course/Dx - Course Course Of Treatment: During the course treatment, the patient is evaluated for right-sided flank pain which is nonradiating. Denies any nausea, vomiting, diarrhea, constipation. Denies any fevers, sweats, chills. Vital signs stable on arrival. History of drug use with heroin overdose 4 months ago. Currently on 8 mg Suboxone daily. On physical examination, patient appears to be in pain , physical exam reveals patient is not diaphoretic, nontoxic appearing, lungs CTA, RRR. Right-sided CVA tenderness without left-sided CVA tenderness. She endorses urinary symptoms, and is unable to give a urine sample. She is given Toradol and zofran in the ED. this with good relief. UA obtained which shows UTI. She is given Keflex 3 times daily 7 days. On reexamination, patient has no flank pain, however very low right-sided back pain just above the right hip. Ct obtained which shows no nephrolithiasis. This is likely muscular. Patient agrees to take Toradol and Flexeril as needed for muscle aches. She will follow-up with her PCP. Vital signs are stable and she is afebrile. I do not at this time suspect pyelo. All labs WNL. - Diagnoses Provider Diagnoses: Muscle spasm, UTI (urinary tract infection) Discharge - Sign-Out/Discharge Documenting (check all that apply): Patient Departure Patient Received Moderate/Deep Sedation with Procedure: No - Discharge Plan Condition: Stable Disposition: HOME Prescriptions: Cephalexin CAP* [Keflex CAP*] 500 mg PO TID #15 cap Cyclobenzaprine TAB* [Flexeril TAB*] 10 mg PO BID PRN #8 tab PRN Reason: Spasms Ketorolac TAB * [Toradol TAB *] 10 mg PO Q6H #16 tab Patient Education Materials: Muscle Spasm (ED) Referrals: No Primary Care Phys,NOPCP [Primary Care Provider] - Additional Instructions: Flexeril twice daily for muscle spasms Toradol 4 times daily 4 days for pain control Moist heat to the area as much as possible will help with symptoms Gentle stretches may help after heat has been applied - Billing Disposition and Condition Condition: STABLE Disposition: Home
[2018-11-01 10:59] LABS: ABS Basophils 0 10^3/ul (0-0.2); ABS Eosinophils 0 10^3/ul (0-0.6); ABS Lymphocytes 0.8 10^3/ul (1.0-4.8); ABS Monocytes 0.8 10^3/ul (0-0.8); ABS Nucleated RBC 0 10^3/ul; Eosinophil % 0.4 %; Hematocrit 34 % (35-47); Hemoglobin 11.1 g/dl (12.0-16.0); Lymphocyte % 7.8 %; Mean Corpuscular HGB Conc 32 g/dl (31-36); Mean Corpuscular Hemoglobin 23 pg (27-31); Mean Corpuscular Volume 72 fL (80-97); Mean Platelet Volume 7.8 fL (7.4-10.4); Nucleated Red Blood Cells % 0; Platelet Count 300 10^3/ul (150-450); Red Blood Count 4.73 10^6/ul (4.00-5.40); Red Cell Distribution Width 19 % (10.5-15); White Blood Count 9.7 10^3/ul (3.5-10.8)
[2018-11-01 11:15] LABS: Albumin 3.9 g/dL (3.2-5.2); BUN/Creatinine Ratio 16.7 (8-20); C Reactive Protein 27.61 mg/L (<8.01); Calcium 10.1 mg/dL (8.6-10.3); EGFR Non-African American 106.6 (>60); Globulin 3.9 g/dL (2-4); Potassium 3.9 mmol/L (3.5-5.0); Total Bilirubin 0.5 mg/dL (0.2-1.0); Total Protein 7.8 g/dL (6.4-8.9)
[2018-11-01] MEDS ORDERED: Cyclobenzaprine TAB* 10 MG PO ONE (11:35)
[2018-11-01 12:02] LABS: Urine Appearance Turbid; Urine Bacteria Absent (Absent); Urine Bilirubin Negative (Negative); Urine Blood 2+ (Negative); Urine Color Yellow; Urine Glucose Negative (Negative); Urine Ketones Negative (Negative); Urine Nitrite Positive (Negative); Urine Protein 1+(30 mg/dL) (Negative); Urine Red Blood Cell 3+(>10/hpf) (Absent); Urine Specific Gravity 1.006 (1.010-1.030); Urine Urobilinogen Negative (Negative); Urine White Blood Cell 3+(>20/hpf) (Absent)
[2018-11-01 12:38] VITALS: BP 119/61
== END 2018-11-01 12:39 | disposition home or self-care (01) ==
LOC: ED 09:47
DX: M62.838 Other muscle spasm (principal); N39.0 Urinary tract infection, site not specified; R30.0 Dysuria; R10.84 Generalized abdominal pain; F17.210 Nicotine dependence, cigarettes, uncomplicated
CPT/HCPCS: 36415; 74176; 80053; 81003; 81015; 83605; 83690; 85025; 86140; 87077; 87086; 87186; 96372; 99283; A9270-GY; J1885

== ENCOUNTER 2019-10-27 10:21 | Emergency (ER) | payer OTHER ==
[2019-10-27] MEDS ORDERED: Clindamycin 600 MG/D5W BAG(*) 600 MG/50 ML BAG IV ONE (12:27)
[2019-10-27 12:54] LABS: ABS Eosinophils 0.2 10^3/ul (0-0.6); ABS Monocytes 0.7 10^3/ul (0-0.8); ABS Neutrophils 4.6 10^3/ul (1.5-7.7); Eosinophil % 2.1 %; Hematocrit 30 % (35-47); Hemoglobin 9.4 g/dL (12.0-16.0); Mean Corpuscular HGB Conc 32 g/dL (31-36); Mean Corpuscular Hemoglobin 22 pg (27-31); Mean Corpuscular Volume 70 fL (80-97); Mean Platelet Volume 7.5 fL (7.4-10.4); Platelet Count 363 10^3/uL (150-450); Red Blood Count 4.25 10^6 /uL (3.70-4.87); Red Cell Distribution Width 19 % (10-15); White Blood Count 7.5 10^3/uL (3.5-10.8)
[2019-10-27 13:11] LABS: Albumin 3.9 g/dL (3.2-5.2); Albumin/Globulin Ratio 1.1 (1-3); BUN/Creatinine Ratio 19.1 (8-20); C Reactive Protein 19.23 mg/L (<8.01); Calcium 9.3 mg/dL (8.6-10.3); EGFR African American 123.8 (>60); EGFR Non-African American 102.3 (>60); Globulin 3.4 g/dL (2-4); Potassium 4.1 mmol/L (3.5-5.0); Total Bilirubin 0.3 mg/dL (0.2-1.0); Total Protein 7.3 g/dL (6.4-8.9)
[2019-10-27] MEDS ORDERED: Iohexol 300* (CONTRAST) 10 ML SDV IV ONE (13:21)
[2019-10-27 14:33] LABS: Erythrocyte Sed Rate 34 mm/Hr (0-19)
[2019-10-27 15:12] VITALS: BP 102/54
--- NOTE | 2019-10-28 06:10 | ED ---
Skin Complaint - HPI Summary HPI Summary: This patient is a 29-year-old female IV drug user presenting to the ED with left ankle pain, swelling and redness after injecting heroin into this area. She states proximal leg 4 days ago she injected heroin into the dorsal aspect of the L ankle joint. Pt states it immediately became red and swollen but this decreased over the next few days. Yesterday, she noticed a lot of swelling and redness and now is endorsing pain, difficulty flexing and extending the foot, difficulty with ambulation and now having discomfort traveling up the leg. Denies any swelling to the lower extremity, only endorses swelling to the ankle. Erythema throughout. Hx of abscess to the L antecubital fossa. No hx of abscess, cellulitis otherwise. No hx of sepsis. No fevers, sweats, chills, N /V, abd pain or other signs of systemic disease. Patient attends [facility] regularly. On Methadone. Last heroin use this morning. - History of Current Complaint Chief Complaint: EDExtremityLower Time Seen by Provider: 10/27/19 10:28 Stated Complaint: SWOLLEN LEFT ANKLE PER PT Hx Obtained From: Patient Hx Last Menstrual Period: 09/11/17 Onset/Duration: Started Days Ago Skin Exposure Onset/Duration: Days Ago Timing: Constant Onset Severity: Mild Current Severity: Moderate Pain Intensity: 8 Pain Scale Used: 0-10 Numeric Skin Location: Discrete - left ankle Character: Pain, Redness Aggravating Symptom(s): Touch Alleviating Symptom(s): Nothing Associated Signs & Symptoms: Joint Swelling - Additional Pertinent History Primary Care Physician: SCOTT - Allergy/Home Medications Allergies/Adverse Reactions: Allergies Allergy/AdvReac Type Severity Reaction Status Date / Time No Known Allergies Allergy Verified 10/27/19 10:23 Home Medications: Home Medications FLUoxetine CAP* [PROzac CAP*] 10 mg PO DAILY 10/27/19 [History Confirmed ] Gabapentin CAP(*) [Neurontin 400 mg CAP(*)] 800 mg PO QID 10/27/19 [History Confirmed 10/27/19] Methadone TAB* [Dolophine TAB*] 50 mg PO DAILY 10/27/19 [History Confirmed 10/27] Sulfamethox/Trimethoprim DS* [Bactrim DS 800/160 TAB*] 1 tab PO BID #14 tab [Rx] busPIRone TAB* [Buspar TAB*] 10 mg PO DAILY 10/27/19 [History Confirmed 10/27/19 ] PMH/Surg Hx/FS Hx/Imm Hx Previously Healthy: Yes Endocrine/Hematology History: Reports: Hx Anemia Denies: Hx Diabetes Cardiovascular History: Denies: Hx Hypertension, Hx Pacemaker/ICD Respiratory History: Denies: Hx Asthma GI History: Reports: Hx Gastroesophageal Reflux Disease, Other GI Disorders - Gastrobypass in 2008, HX constipation History: Denies: Hx Dialysis, Hx Renal Disease Sensory History: Reports: Hx Contacts or Glasses Denies: Hx Hearing Aid Opthamlomology History: Reports: Hx Contacts or Glasses Neurological History: Reports: Hx Headaches, Other Neuro Impairments/Disorders - l sided neuopathy Psychiatric History: Reports: Hx Anxiety, Hx Eating Disorder, Hx Depression, Hx Inpatient Treatment, Hx Community Mental Health Tx, Hx Substance Abuse Denies: Hx Panic Disorder, Hx of Violent Episodes Against Others - Surgical History Surgery Procedure, Year, and Place: gastric bypass 2008 on [place] - Immunization History Date of Tetanus Vaccine: Unk Date of Influenza Vaccine: None Hx Pertussis Vaccination: No Immunizations Up to Date: Yes Infectious Disease History: No Infectious Disease History: Reports: Hx Hepatitis - Hep C Denies: Traveled Outside the [place] in Last 30 Days - Family History Known Family History: Positive: Other - Bipolar, depression - Social History Occupation: Unemployed Lives: Alone Alcohol Use: None Hx Substance Use: Yes Substance Use Type: Reports: Heroin, Other Substance Use Comment - Amount & Last Used: on methadone currently Hx Tobacco Use: Yes Smoking Status (MU): Heavy Every Day Tobacco Smoker Type: Cigarettes Amount Used/How Often: 1 ppd Length of Time of Smoking/Using Tobacco: 13 years Have You Smoked in the Last Year: Yes Review of Systems Negative: Fever, Chills, Fatigue, Skin Diaphoresis Negative: Chest Pain Negative: Shortness Of Breath, Cough Positive: Arthralgia Positive: Other - erythema and warmth to the L ankle Neurological/Mental Status: Negative Psychological: Normal All Other Systems Reviewed And Are Negative: Yes Physical Exam Triage Information Reviewed: Yes Vital Signs On Initial Exam: Initial Vitals Temp Pulse Resp BP Pulse Ox 98.5 F 78 16 127/72 100 10/27/19 10:23 10/27/19 10:23 10/27/19 10:23 10/27/19 10:23 10/27/19 10:23 Vital Signs Reviewed: Yes Appearance: Positive: Well-Appearing, Well-Nourished Skin: Positive: Skin Color Reflects Adequate Perfusion, Other - erythema and warmth to the L ankle Eyes: Positive: EOMI, MUNIR, Conjunctiva Clear Neck: Positive: Supple, No Lymphadenopathy Respiratory/Lung Sounds: Positive: Clear to Auscultation, Breath Sounds Present Cardiovascular: Positive: Pulses are Symmetrical in both Upper and Lower Extremities Musculoskeletal: Positive: Pain @ - left ankle ROM limitations Neurological: Positive: Speech Normal Psychiatric: Positive: Normal, Affect/Mood Appropriate AVPU Assessment: Alert Procedures - Sedation Patient Received Moderate/Deep Sedation with Procedure: No Diagnostics - Vital Signs Vital Signs Temp Pulse Resp BP Pulse Ox 10/27/19 14:45 70 102/54 97 10/27/19 14:15 61 100/56 97 10/27/19 14:01 62 98 10/27/19 13:45 59 100/56 97 10/27/19 13:15 61 105/63 96 10/27/19 13:01 61 107/63 98 10/27/19 12:59 75 99 10/27/19 11:45 59 105/62 99 10/27/19 11:15 63 104/60 98 10/27/19 11:00 60 99 10/27/19 10:47 75 100 10/27/19 10:45 74 105/73 99 10/27/19 10:23 98.5 F 78 16 127/72 100 - Laboratory Lab Results: Lab Results 10/27/19 10/27/19 Range/Units 12:33 12:33 WBC 7.5 (3.5-10.8) 10^3/uL RBC 4.25 (3.70-4.87) 10^6 /uL Hgb 9.4 L (12.0-16.0) g/dL Hct 30 L (35-47) % MCV 70 L (80-97) fL MCH 22 L (27-31) pg MCHC 32 (31-36) g/dL RDW 19 H (10-15) % Plt Count 363 (150-450) 10^3/uL MPV 7.5 (7.4-10.4) fL Neut % (Auto) 61.5 % Lymph % (Auto) 27.0 % [place] % (Auto) 8.7 % Eos % (Auto) 2.1 % Baso % (Auto) 0.7 % Absolute Neuts (auto) 4.6 (1.5-7.7) 10^3/ul Absolute Lymphs (auto) 2.0 (1.0-4.8) 10^3/ul Absolute Monos (auto) 0.7 (0-0.8) 10^3/ul Absolute Eos (auto) 0.2 (0-0.6) 10^3/ul Absolute Basos (auto) 0.0 (0-0.2) 10^3/ul Absolute Nucleated RBC 0.0 10^3/ul Nucleated RBC % 0.0 ESR 34 H (0-19) mm/Hr Sodium 134 L (135-145) mmol/L Potassium 4.1 (3.5-5.0) mmol/L Chloride 100 L (101-111) mmol/L Carbon Dioxide 29 (22-32) mmol/L Anion Gap 5 (2-11) mmol/L BUN 13 (6-24) mg/dL Creatinine 0.68 (0.51-0.95) mg/dL Est GFR ( Amer) 123.8 (>60) Est GFR (Non-Af Amer) 102.3 (>60) BUN/Creatinine Ratio 19.1 (8-20) Glucose 93 (70-100) mg/dL Calcium 9.3 (8.6-10.3) mg/dL Total Bilirubin 0.30 (0.2-1.0) mg/dL AST 14 (13-39) U/L ALT 8 (7-52) U/L Alkaline Phosphatase 94 (34-104) U/L C-Reactive Protein 19.23 H (<8.01) mg/L Total Protein 7.3 (6.4-8.9) g/dL Albumin 3.9 (3.2-5.2) g/dL Globulin 3.4 (2-4) g/dL Albumin/Globulin Ratio 1.1 (1-3) Result Diagrams: 10/27/19 12:33 10/27/19 12:33 Lab Statement: Any lab studies that have been ordered have been reviewed, and results considered in the medical decision making process. Re-Evaluation - Re-Evaluation First Eval Change: Improved - pt states she is feeling improved and would like to be DC'd home Second Eval Change: Unchanged - pt requesting leave AMA without CT Course/Dx - Course Course Of Treatment: Patient is evaluated for left ankle pain, swelling and erythema. On physical examination, patient has difficulty with flexion and extension of the ankle. There is erythema throughout extending just proximal to the ankle without evidence of involvement of the calf. Area to the dorsum of the ankle joint, slightly more swollen with tenderness to this area. No evidence of direct abscess that could warrant an I and D. Warmth throughout the bilateral sides of the ankle into the dorsum of the ankle. No pain on palpation to the foot. Pulses +2 intact. No pain to the knee in flexion and extension are intact. X-ray of the ankle shows soft tissue swelling. Labs obtained which shows elevated CRP and ESR. Due to history of abscess and possibility of abscess to the ankle, CT lower extremity was ordered. Pt given IV clindamycin for coverage of cellulitis/abscess MRSA and strep species. Pt states she is feeling improved and would like to go home. It was discussed with the patient, I recommend a CT to further evaluate the joint for a possible abscess. Pt refused further treatments at this time and any recommendations made by myself and has decided to leave against medical advice. All risks and benefits of leaving AMA were explained and provided in writing to the patient. Patient signed appropriate documentation and this was witnessed by the nurse, Ruth and myself. They have normal mental status and adequate capacity to make medical decisions. The risks have been explained to the patient, including worsening illness, chronic pain, permanent disability and . Bactrim sent to pharmacy. - Differential Diagnoses - Skin Complaint Differential Diagnoses: Other - abscess, joint infection - Diagnoses Provider Diagnoses: Cellulitis Discharge ED - Sign-Out/Discharge Documenting (check all that apply): Patient Departure - Discharge Plan Condition: Stable Disposition: AGAINST MEDICAL ADVICE Prescriptions: Sulfamethox/Trimethoprim DS* [Bactrim DS 800/160 TAB*] 1 tab PO BID #14 tab Patient Education Materials: Cellulitis (ED) Referrals: Jocy Rock NP [Primary Care Provider] - Additional Instructions: Bactrim twice daily x 7 days Return to the ED if you develop any worsening symptoms including fever Follow up with primary in 2 days for a recheck - Billing Disposition and Condition Condition: STABLE Disposition: Against Medical Advice - Attestation Statements Provider Attestation: I was available for consultation for this patient. I did not evaluate the patient or participate in any medical decision making or disposition decisions unless I am specifically named in the chart as having consulted on the patient. If I have consulted on the patient, please see my own ED note on the patient encounter. Malcolm Navarro MD
== END 2019-10-27 15:56 | disposition left against medical advice (07) ==
LOC: ED 10:21
DX: L03.116 Cellulitis of left lower limb (principal); F17.210 Nicotine dependence, cigarettes, uncomplicated; D64.9 Anemia, unspecified; K21.9 Gastro-esophageal reflux disease without esophagitis; F41.9 Anxiety disorder, unspecified; F32.9 Major depressive disorder, single episode, unspecified; Z98.84 Bariatric surgery status; Z86.19 Personal history of other infectious and parasitic diseases; Z79.899 Other long term (current) drug therapy
CPT/HCPCS: 36415; 80053; 85025; 85652; 86140; 96374; 99283

== ENCOUNTER 2020-03-29 11:19 | Inpatient (IN) ==
[2020-03-29 12:02] LABS: Urine Appearance Cloudy; Urine Bilirubin Negative (Negative); Urine Blood Negative (Negative); Urine Color Yellow; Urine Glucose Negative (Negative); Urine Ketones Negative (Negative); Urine Nitrite Negative (Negative); Urine Protein 1+(30 mg/dL) (Negative); Urine Specific Gravity 1.031 (1.010-1.030); Urine Urobilinogen Negative (Negative)
[2020-03-29 12:11] LABS: Urine Bacteria Absent (Absent); Urine Red Blood Cell 2+(6-10/hpf) (Absent); Urine Squamous Epithelial Cell Present (Absent); Urine White Blood Cell 2+(11-20/hpf) (Absent)
[2020-03-29 12:15] LABS: Urine Benzodiazepine Screen Presumptive Positive (None Detect); Urine Opiates Screen Presumptive Positive (None Detect)
[2020-03-29 13:17] LABS: ABS Eosinophils 0.2 10^3/ul (0-0.6); ABS Monocytes 0.8 10^3/ul (0-0.8); Eosinophil % 2.8 %; Hematocrit 27 % (35-47); Hemoglobin 8.8 g/dL (12.0-16.0); Lymphocyte % 30.8 %; Mean Corpuscular HGB Conc 33 g/dL (31-36); Mean Corpuscular Hemoglobin 22 pg (27-31); Mean Corpuscular Volume 66 fL (80-97); Mean Platelet Volume 7.4 fL (7.4-10.4); Platelet Count 279 10^3/uL (150-450); Red Blood Count 4.11 10^6 /uL (3.70-4.87); Red Cell Distribution Width 20 % (10-15); White Blood Count 6.4 10^3/uL (3.5-10.8)
[2020-03-29 13:32] LABS: ALT 17 U/L (7-52); AST 23 U/L (13-39); Albumin 3.7 g/dL (3.2-5.2); Albumin/Globulin Ratio 1.2 (1-3); Alkaline Phosphatase 77 U/L (34-104); Anion Gap 3 mmol/L (2-11); Blood Urea Nitrogen 23 mg/dL (6-24); CO2 Carbon Dioxide 28 mmol/L (22-32); Calcium 9.2 mg/dL (8.6-10.3); Chloride 106 mmol/L (101-111); EGFR African American 83.1 (>60); EGFR Non-African American 68.7 (>60); Globulin 3.1 g/dL (2-4); Glucose 53 mg/dL (70-100); Potassium 3.6 mmol/L (3.5-5.0); Sodium 137 mmol/L (135-145); Total Protein 6.8 g/dL (6.4-8.9)
[2020-03-29 13:52] LABS: Acetaminophen < 15 mcg/mL; Alcohol, S < 10 mg/dL (<10); Salicylate < 2.50 mg/dL (<30)
[2020-03-29 14:06] LABS: TSH (Thyroid Stimulating Horm) 1.16 mcIU/mL (0.34-5.60)
[2020-03-29] MEDS ORDERED: Al Hydrox/Mg Hydrox/Simet LIQ 30 ML UDC PO PRN (18:11)
[2020-03-29] MEDS ORDERED: Nicotine GUM 2MG FRUIT FLAVOR PO PRN (19:00)
[2020-03-30] MEDS: Nicotine PATCH 21 MG/24 HR PATCH TRANSDERM SCH ×2 (02:22→09:20)
[2020-03-30] MEDS ORDERED: Nicotine GUM 4MG FRUIT FLAVOR PO ONE (09:20)
[2020-03-30] MEDS ORDERED: Nicotine Lozenge mini 4 MG LOZNG.MINI MT PRN (09:23)
[2020-03-30] MEDS: Vitamin THERAPEUTIC TAB PO SCH (09:25)
[2020-03-30 11:22] LABS: Urine Benzodiazepine Screen Presumptive Positive (None Detect); Urine Buprenorphine Screen None Detected (None Detect); Urine Fentanyl Screen Presumptive Positive (None Detect); Urine Hydrocodone Screen None Detected (None Detect); Urine Opiates Screen Presumptive Positive (None Detect)
[2020-03-31] MEDS: Vitamin THERAPEUTIC TAB PO SCH (07:48)
[2020-03-31] MEDS: Nicotine PATCH 21 MG/24 HR PATCH TRANSDERM SCH (07:48)
[2020-03-31] MEDS: Nicotine GUM 4MG FRUIT FLAVOR PO PRN (07:53)
[2020-03-31] MEDS ORDERED: METHADONE 10 MG/ML PO SCH (09:00)
[2020-03-31] MEDS: METHADONE 10 MG/ML PO SCH (09:29)
[2020-04-01] MEDS: Nicotine PATCH 21 MG/24 HR PATCH TRANSDERM SCH (08:16)
[2020-04-01] MEDS: Vitamin THERAPEUTIC TAB PO SCH (08:16)
[2020-04-01] MEDS: Nicotine GUM 4MG FRUIT FLAVOR PO PRN ×3 (08:19→17:55)
[2020-04-01] MEDS: METHADONE 10 MG/ML PO SCH (08:19)
[2020-04-02] MEDS: Nicotine PATCH 21 MG/24 HR PATCH TRANSDERM SCH (07:34)
[2020-04-02] MEDS: Nicotine GUM 4MG FRUIT FLAVOR PO PRN ×2 (07:35→10:56)
[2020-04-02] MEDS: METHADONE 10 MG/ML PO SCH (08:49)
[2020-04-02] MEDS: Vitamin THERAPEUTIC TAB PO SCH (08:52)
[2020-04-02 09:09] VITALS: BP 95/61
== END 2020-04-02 14:15 | disposition home or self-care (01) | DRG 776 ==
LOC: ED 11:19 → BSU 17:48
PROVIDERS: ADMIT Psychiatry & Neurology Psychiatry; ATTEND Psychiatry & Neurology Psychiatry

== ENCOUNTER 2020-07-29 00:08 | Inpatient (IN) ==
[2020-07-29 01:32] LABS: Urine Appearance Cloudy; Urine Bilirubin Negative (Negative); Urine Blood Negative (Negative); Urine Color Yellow; Urine Glucose Negative (Negative); Urine Ketones Negative (Negative); Urine Nitrite Positive (Negative); Urine Protein Negative (Negative); Urine Specific Gravity 1.016 (1.010-1.030); Urine Urobilinogen Negative (Negative)
[2020-07-29 01:36] LABS: Urine Bacteria 1+ (Absent); Urine Red Blood Cell Trace(0-2/hpf) (Absent); Urine Squamous Epithelial Cell Present (Absent); Urine White Blood Cell Trace(0-5/hpf) (Absent)
[2020-07-29 01:37] LABS: ABS Basophils 0.1 10^3/ul (0-0.2); ABS Eosinophils 0.2 10^3/ul (0-0.6); ABS Lymphocytes 2.7 10^3/ul (1.0-4.8); ABS Monocytes 0.7 10^3/ul (0-0.8); ABS Neutrophils 3.3 10^3/ul (1.5-7.7); Eosinophil % 2.2 %; Hematocrit 27 % (35-47); Hemoglobin 8.5 g/dL (12.0-16.0); Lymphocyte % 38.9 %; Mean Corpuscular HGB Conc 31 g/dL (31-36); Mean Corpuscular Hemoglobin 21 pg (27-31); Mean Corpuscular Volume 68 fL (80-97); Mean Platelet Volume 7.6 fL (7.4-10.4); Platelet Count 347 10^3/uL (150-450); Red Blood Count 4.01 10^6 /uL (3.70-4.87); Red Cell Distribution Width 20 % (10-15)
[2020-07-29 01:56] LABS: Urine Benzodiazepine Screen None Detected (None Detect); Urine Cannabinoids Screen None Detected (None Detect); Urine Opiates Screen Presumptive Positive (None Detect)
[2020-07-29 01:56] LABS: ALT 22 U/L (7-52); AST 31 U/L (13-39); Albumin 3.6 g/dL (3.2-5.2); Albumin/Globulin Ratio 1.2 (1-3); Alkaline Phosphatase 82 U/L (34-104); Anion Gap 6 mmol/L (2-11); BUN/Creatinine Ratio 22.1 (8-20); Blood Urea Nitrogen 15 mg/dL (6-24); CO2 Carbon Dioxide 26 mmol/L (22-32); Calcium 9.1 mg/dL (8.6-10.3); Chloride 104 mmol/L (101-111); EGFR African American 123.8 (>60); EGFR Non-African American 102.3 (>60); Globulin 3.1 g/dL (2-4); Glucose 69 mg/dL (70-100); Potassium 3.7 mmol/L (3.5-5.0); Sodium 136 mmol/L (135-145); Total Protein 6.7 g/dL (6.4-8.9)
[2020-07-29 02:02] LABS: HCG Pregnancy < 0.60 mIU/mL
[2020-07-29 02:38] LABS: Alcohol, S < 10 mg/dL (<10); Salicylate < 2.50 mg/dL (<30)
[2020-07-29 02:40] LABS: Acetaminophen < 15 mcg/mL
[2020-07-29] MEDS ORDERED: Methadone ORALSYR CONC LIQ 10 MG/ML PO ONE (12:00)
[2020-07-29] MEDS ORDERED: Al Hydrox/Mg Hydrox/Simet LIQ 30 ML UDC PO PRN (15:21)
[2020-07-30] MEDS: Vitamin THERAPEUTIC TAB PO SCH (10:18)
[2020-07-30] MEDS: Methadone ORALSYR CONC LIQ 10 MG/ML PO SCH (10:59)
[2020-07-31 08:30] VITALS: BP 107/72
[2020-07-31] MEDS: Methadone ORALSYR CONC LIQ 10 MG/ML PO SCH (08:56)
[2020-07-31] MEDS: Vitamin THERAPEUTIC TAB PO SCH (08:59)
[2020-07-31] MEDS ORDERED: Influenza VAC *QUAD* 2020-21* 0.5 ML SYRINGE IM ONE (11:00)
== END 2020-07-31 13:25 | disposition home or self-care (01) | DRG 773 ==
LOC: ED 00:08 → BSU 14:30 → ED 14:55
PROVIDERS: ADMIT Psychiatry & Neurology Addiction Psychiatry; ATTEND Psychiatry & Neurology Addiction Psychiatry

== ENCOUNTER 2021-11-30 17:44 | Inpatient (IN) ==
[2021-11-30 18:57] LABS: Hematocrit 25 % (35-47); Hemoglobin 8.1 g/dL (12.0-16.0); Mean Corpuscular HGB Conc 33 g/dL (31-36); Mean Corpuscular Hemoglobin 23 pg (27-31); Mean Corpuscular Volume 71 fL (80-97); Red Blood Count 3.47 10^6 /uL (3.70-4.87); Red Cell Distribution Width 21 % (10-15); White Blood Count 6.6 10^3/uL (3.5-10.8)
[2021-11-30 19:21] LABS: Mean Platelet Volume 8.1 fL (7.4-10.4); Platelet Count 268 10^3/uL (150-450)
[2021-11-30 19:22] LABS: ALT 63 U/L (7-52); AST 103 U/L (13-39); Acetaminophen < 15 mcg/mL; Albumin 3.6 g/dL (3.2-5.2); Albumin/Globulin Ratio 1.3 (1-3); Alcohol, S < 13 mg/dL (<13); Alkaline Phosphatase 87 U/L (35-149); Anion Gap 8 mmol/L (2-11); Blood Urea Nitrogen 16 mg/dL (6-24); CO2 Carbon Dioxide 24 mmol/L (22-32); Calcium 9.2 mg/dL (8.6-10.3); Chloride 103 mmol/L (101-111); Globulin 2.8 g/dL (2-4); Glucose 91 mg/dL (70-100); Potassium 3.7 mmol/L (3.5-5.0); Sodium 135 mmol/L (135-145); Total Protein 6.4 g/dL (6.4-8.9); eGFR CKD-EPI 91.3 (>60)
[2021-11-30 19:23] LABS: Salicylate < 2.50 mg/dL (<30)
[2021-11-30 19:27] LABS: ABS Eosinophils 0.2 10^3/ul (0-0.6); ABS Lymphocytes 2.3 10^3/ul (1.0-4.8); ABS Monocytes 0.7 10^3/ul (0-0.8); ABS Neutrophils 3.5 10^3/ul (1.5-7.7); Anisocytosis 1+; Eosinophil % 2.5 %; Lymphocyte % 34.8 %; Microcytosis 2+
[2021-11-30 19:36] LABS: TSH Ultra Thyroid Stim Horm 2.02 mcIU/mL (0.34-5.60)
[2021-11-30 20:49] LABS: Urine Benzodiazepine Screen None Detected (None Detect); Urine Cannabinoids Screen None Detected (None Detect); Urine Opiates Screen None Detected (None Detect)
[2021-11-30 20:53] LABS: Urine Appearance Cloudy; Urine Bilirubin Negative (Negative); Urine Blood 1+ (Negative); Urine Color Yellow; Urine Glucose Negative (Negative); Urine Ketones Negative (Negative); Urine Nitrite Negative (Negative); Urine Protein Negative (Negative); Urine Specific Gravity 1.011 (1.002-1.030); Urine Urobilinogen Negative (Negative)
[2021-11-30 20:59] LABS: Urine Bacteria Absent (Absent); Urine Red Blood Cell Trace(0-2/hpf) (Absent); Urine Squamous Epithelial Cell Present (Absent); Urine White Blood Cell 3+(>20/hpf) (Absent)
[2021-11-30] MEDS ORDERED: Al Hydrox/Mg Hydrox/Simet LIQ 30 ML UDC PO PRN (23:47)
[2021-12-01] MEDS: Multivitamins/Minerals TAB PO SCH (08:43)
[2021-12-01] MEDS: Methadone ORALSYR CONC LIQ 10 MG/ML PO SCH (08:43)
[2021-12-02] MEDS: Methadone ORALSYR CONC LIQ 10 MG/ML PO SCH (08:38)
[2021-12-02] MEDS: Multivitamins/Minerals TAB PO SCH (08:40)
[2021-12-03] MEDS: Multivitamins/Minerals TAB PO SCH (08:16)
[2021-12-03] MEDS: Methadone ORALSYR CONC LIQ 10 MG/ML PO SCH (08:19)
[2021-12-03] MEDS ORDERED: Polyethylene Glycol 3350 17 GM PACKET PO PRN (15:14)
[2021-12-04 08:21] LABS: HDL Cholesterol 65.6 mg/dL
[2021-12-04] MEDS: Methadone ORALSYR CONC LIQ 10 MG/ML PO SCH (08:27)
[2021-12-04] MEDS: Multivitamins/Minerals TAB PO SCH (08:49)
[2021-12-05] MEDS ORDERED: Methadone ORALSYR CONC LIQ 10 MG/ML PO SCH (09:00)
[2021-12-05] MEDS: Multivitamins/Minerals TAB PO SCH (11:37)
[2021-12-05] MEDS: Nicotine GUM 2MG FRUIT FLAVOR PO PRN (15:44)
[2021-12-05] MEDS: Nicotine PATCH 14 MG/24 HR PATCH TRANSDERM SCH (20:24)
[2021-12-06] MEDS: Multivitamins/Minerals TAB PO SCH (08:49)
[2021-12-06] MEDS: Methadone ORALSYR CONC LIQ 10 MG/ML PO SCH (08:50)
[2021-12-06] MEDS: Nicotine PATCH 14 MG/24 HR PATCH TRANSDERM SCH (08:50)
[2021-12-06 08:55] LABS: Urine Appearance Cloudy; Urine Bilirubin Negative (Negative); Urine Blood Negative (Negative); Urine Color Yellow; Urine Glucose Negative (Negative); Urine Ketones Negative (Negative); Urine Nitrite Negative (Negative); Urine Protein 1+(30 mg/dL) (Negative); Urine Specific Gravity 1.017 (1.002-1.030); Urine Urobilinogen Negative (Negative)
[2021-12-06 09:00] LABS: Urine Bacteria Absent (Absent); Urine Red Blood Cell 3+(>10/hpf) (Absent); Urine Squamous Epithelial Cell Present (Absent); Urine Transitional Epithelial Present (Absent); Urine White Blood Cell 3+(>20/hpf) (Absent)
[2021-12-06] MEDS: Nicotine GUM 2MG FRUIT FLAVOR PO PRN (11:52)
[2021-12-07] MEDS: Methadone ORALSYR CONC LIQ 10 MG/ML PO SCH (08:27)
[2021-12-07] MEDS: Nicotine PATCH 14 MG/24 HR PATCH TRANSDERM SCH (08:28)
[2021-12-07] MEDS: Multivitamins/Minerals TAB PO SCH (08:29)
[2021-12-07] MEDS: Nicotine GUM 2MG FRUIT FLAVOR PO PRN ×2 (13:27→18:38)
[2021-12-08] MEDS: Methadone ORALSYR CONC LIQ 10 MG/ML PO SCH (07:23)
[2021-12-08] MEDS: Nicotine PATCH 14 MG/24 HR PATCH TRANSDERM SCH (07:23)
[2021-12-08] MEDS: Multivitamins/Minerals TAB PO SCH (07:24)
[2021-12-08] MEDS: Nicotine GUM 2MG FRUIT FLAVOR PO PRN (09:46)
[2021-12-09] MEDS: Multivitamins/Minerals TAB PO SCH (07:59)
[2021-12-09] MEDS: Nicotine PATCH 14 MG/24 HR PATCH TRANSDERM SCH (08:01)
[2021-12-09] MEDS: Methadone ORALSYR CONC LIQ 10 MG/ML PO SCH (08:01)
[2021-12-09 13:15] LABS: Chlamydia trachomatis NAA Negative (Negative); Neisseria gonorrhoeae (GC) NAA Negative (Negative)
[2021-12-10] MEDS: Methadone ORALSYR CONC LIQ 10 MG/ML PO SCH (07:16)
[2021-12-10 07:30] VITALS: BP 97/52
[2021-12-10] MEDS: Multivitamins/Minerals TAB PO SCH (08:08)
[2021-12-10] MEDS: Nicotine PATCH 14 MG/24 HR PATCH TRANSDERM SCH (08:10)
== END 2021-12-10 12:14 | DRG 751 ==
LOC: ED 17:44 → BSU 21:13
PROVIDERS: ADMIT Psychiatry & Neurology Psychiatry; ATTEND Psychiatry & Neurology Psychiatry